=== PATIENT | female | born 1955 | race Caucasian/White ===

== ENCOUNTER → 2020-09-30 11:57 | Outpatient (CLI) | payer OTHER, SELFPAY ==
--- NOTE | 2020-09-30 | DI.US.S_ITS ---
PROCEDURE: US PERIPH VENOUS LOW EXTREM RT INDICATIONS: Pain in right leg TECHNIQUE: Real-time imaging, as well as color and pulse Doppler interrogation, were performed of the lower extremity deep veins from the inguinal ligament to the popliteal fossa. COMPARISON: None. FINDINGS: Deep venous thrombosis can be seen involving the femoral vein distally and the popliteal vein proximally. More proximal deep venous thrombosis is not seen. IMPRESSION: Deep venous thrombosis can be seen involving the femoral vein distally and the proximal popliteal vein. Note: Case discussed by telephone with nurse Menezes at 12:15 p.m. [place] time on September 30, 2020. Dictated by: Primitivo Cerda M.D. on 09/30/2020 at 12:07 Approved by: Primitivo Cerda M.D. on 09/30/2020 at 12:16
== END ==
PROVIDERS: PCP Physician Assistant Medical; Referring Provider Family Medicine; Visit Provider Family Medicine
DX: I82.491 Acute embolism and thrombosis of other specified deep vein of right lower extremity (principal)
CPT/HCPCS: 93971

== ENCOUNTER 2020-09-30 14:07 | Emergency (ER) | payer OTHER, SELFPAY ==
[2020-09-30] VITALS (22 sets, daily range): BP systolic 121–150; BP diastolic 62–83; PULSE 78–113; RESP 12–91; TEMP 36.3; O2SAT 98–100; BMI 23.6
--- NOTE | 2020-09-30 14:32 | DI.RAD.S_ITS ---
PROCEDURE: XR CHEST 2V INDICATIONS: shortness of breath TECHNIQUE: 2 views of the chest were acquired. COMPARISON: [facility], , PERIPH VENOUS LOW EXTREM RT, 09/30/2020, 12:05. FINDINGS: Surgical changes and devices: None. Lungs and pleura: Lungs are clear. No pleural effusions or pneumothorax. The lungs are hyperexpanded, with flattening of the hemidiaphragms seen. Mediastinum: The cardiac contours are within normal limits. The aorta demonstrates calcification and tortuosity. Bones and chest wall: No suspicious bony abnormalities. Age-appropriate bony degenerative changes are seen. Mild levoconvex scoliotic curvature is noted. Soft tissues appear unremarkable. IMPRESSION: Hyperexpanded lungs, without an acute cardiopulmonary process identified. Dictated by: Primitivo Cerda M.D. on 09/30/2020 at 14:20 Approved by: Primitivo Cerda M.D. on 09/30/2020 at 14:21
[2020-09-30 14:41] LABS: Add Manual Diff / Slide Review NO; Basophils Absolute Auto 100 /uL (0-100); Eosinophils Absolute Auto 100 /uL (0-450); Eosinophils Percent Auto 1.4 % (2-4); Hematocrit 25.4 % (36-46); Hemoglobin 7.3 g/dL (12.0-16.0); Lymphocytes Absolute Auto 1300 /uL (1100-4500); Lymphocytes Percent Auto 15.2 % (25-40); Mean Corpuscular HGB Conc 28.7 % (30-36); Mean Corpuscular Hemoglobin 19.6 PG (26-34); Mean Corpuscular Volume 68.1 fL (80-100); Monocytes Absolute Auto 700 /uL (0-900); Monocytes Percent Auto 8.2 % (3-14); Neutrophils Absolute Auto 6100 /uL (1500-7000); Neutrophils Percent Auto 74.2 % (50-75); Platelet Count 426 X10^3/uL (150-400); Red Blood Cell Count 3.73 X10^6/uL (4.0-5.2); White Blood Cell Count 8.3 X10^3/uL (4.5-11.0)
[2020-09-30 14:43] LABS: Alanine Aminotransferase 20 IU/L (<35); Albumin 4.1 g/dL (3.5-5.0); Albumin Globulin Ratio 1.3 (1.0-2.8); Alkaline Phosphatase 102 U/L (38-126); Aspartate Aminotransferase 43 IU/L (14-36); BUN Creatinine Ratio 17.9 (6-22); Bilirubin Total 0.3 mg/dL (0.2-1.3); Blood Urea Nitrogen 14 mg/dL (7-17); Carbon Dioxide 23 mmol/L (22-32); Chloride 107 mmol/L (98-107); Estimated Glomerular Filt Rate > 60.0 mL/min (>60); Globulin 3.2 g/dL (1.7-4.1); Glucose 108 mg/dL (80-110); HEMOLYSIS < 15 (0-50); Potassium 4.1 mmol/L (3.4-5.1); Sodium 136 mmol/L (137-145); Total Protein 7.3 g/dL (6.3-8.2)
[2020-09-30 15:03] LABS: Hypochromasia 1+; Poikilocytosis 1+; Polychromasia 1+
[2020-09-30 15:04] LABS: Microcytosis 3+
--- NOTE | 2020-09-30 16:02 | DI.CT.S_ITS ---
PROCEDURE: CT ANGIO CHEST PE PROTOCOL INDICATIONS: +dvt and sob TECHNIQUE: After the administration of intravenous contrast, 2 mm thick sections acquired from the pulmonary apices to the posterior costophrenic angles. 3-dimensional maximum intensity projection (MIP) coronal and sagittal reformats were then acquired through the thorax. For radiation dose reduction, the following was used: automated exposure control, adjustment of mA and/or kV according to patient size. COMPARISON: [facility], , US PERIPH VENOUS LOW EXTREM RT, 09/30/2020, 12:05. [facility], CR, XR CHEST 2V, 09/30/2020, 14:40. FINDINGS: Image quality: Excellent. Pulmonary arteries: Pulmonary arteries are normal in size. There are multiple intraluminal filling defects involving the left main pulmonary artery, the left upper and lower lobe and right lower lobe lobar arteries, consistent with central pulmonary embolism. Lungs and pleura: There is mild emphysema. A linear density in the right middle lobe is likely atelectasis. No pleural effusions or pneumothorax. Central and peripheral airways are patent. Mediastinum: Heart size is normal, without pericardial effusion. No CT findings to suggest right heart strain. No mediastinal or hilar adenopathy. Thoracic aorta is normal in caliber and enhancement. Esophagus is normal in caliber. Small hiatal hernia. Bones and chest wall: No suspicious bony lesions. Ribs and thoracic spine appear intact. Subtle lucencies noted in superior L1, partially visualized. Thyroid gland is normal . No axillary or supraclavicular adenopathy. Abdomen: Visualized upper abdominal solid organs appear normal in the early arterial phase of enhancement. IMPRESSION: 1. Bilateral pulmonary emboli involving the left main and bilateral lobar pulmonary arteries. No findings to suggest right heart strain. 2. Mild emphysema. 3. Small lucent areas in superior L1, partially visualized and indeterminate in nature. If clinically indicated, MRI may be obtained for further evaluation. Dictated by: Annelise Junior M.D. on 09/30/2020 at 16:35 Approved by: Annelise Junior M.D. on 09/30/2020 at 16:52
--- NOTE | 2020-09-30 16:23 | ED_ITS ---
HPI - Extremity Problem General Chief complaint: Extremity Problem,Nontraumatic Stated complaint: DVT Right leg Time Seen by Provider: 09/30/20 14:57 Source: patient Mode of arrival: Ambulatory Limitations: no limitations History of Present Illness HPI Narrative: Patient is a 64-year-old female who is found to have an outpatient positive DVT study in the right lower extremity. She says that she has had swelling on going for about month. She has also been experiencing some shortness of breath with exertion. She says this is new for her. She denies any chest pain. She has not had any recent travel, or immobilization. She has no underlying clotting disorder. Related Data Allergies Allergy/AdvReac Type Severity Reaction Status Date / Time No Known Drug Allergies Allergy Verified 09/30/20 14:11 Review of Systems Review of Systems Narrative: GENERAL: Denies chills, fatigue, malaise, fever, sweats, travel HEENT: Denies sinus pain, ear pain, sore throat, difficulty swallowing, neck pain RESPIRATORY: See HPI CARDIOVASCULAR: Denies chest pain, palpitations, orthopnea, edema GASTROINTESTINAL: Denies nausea, vomiting, abdominal pain, diarrhea, constipation, melena. : Denies dysuria, frequency, incontinence, hematuria, urinary retention, flank pain. MUSCULOSKELETAL: See HPI SKIN: No rash, no erythema, no pruritus NEUROLOGIC: Denies weakness, dizziness, headache, numbness, change in speech, confusion PSYCHIATRIC: No concerning psychosocial issues. 12 point review of systems is negative except for those stated above and HPI Patient History Medical History (Updated 09/30/20 @ 19:20 by Carol Mccoy DO) Ulcerative colitis Social History Smoking Status: Unknown if ever smoked Smoking Status: Unknown if ever smoked alcohol intake frequency: 0-2 drinks per day Substance Use Type: does not use Exam Initial Vital Signs Initial Vital Signs: Vital Signs Temperature 97.3 F L 09/30/20 14:08 Pulse Rate 85 09/30/20 14:08 Respiratory Rate 15 09/30/20 14:08 Blood Pressure 124/78 09/30/20 14:08 Pulse Oximetry 100 09/30/20 14:08 GENERAL: Well-appearing, well-nourished and in no acute distress. HEENT: Head atraumatic,EOMI, pupils reactive, face symmetric, moist mucous membranes CARDIOVASCULAR: Regular rate and rhythm without murmurs, rubs or gallops. RESPIRATORY: Breath sounds equal bilaterally, no wheezes rales or rhonchi. ABDOMEN: Soft, nontender. Normoactive bowel sounds all 4 quadrants. No guarding or rebound. EXTREMITIES: Normal range of motion, no clubbing or edema. Neurovascularly intact. Mild pain and swelling of her right lower extremity with pain on her calf. NEUROLOGICAL: Alert and oriented x4.Normal gait and speech. SKIN: Warm, dry, no laceration, no petechiae, no rashes or lesions. Course Orders Ordered: ED Orders 09/30/20 14:20 Complete Blood Count AUTO DIFF Stat Comprehensive Metabolic Panel Stat Lactate (Lactic Acid) Stat Partial Thromboplastin Time Stat Troponin & CK Cardiac Panel Stat 09/30/20 14:32 XR chest 2V Stat EKG-12 Lead Stat Measure peak expiratory flow ONCE RT Consult Eval and Treat Now 09/30/20 16:02 CT angio chest PE protocol Stat 09/30/20 18:15 PTT [Partial Thromboplastin Time] Q6H 09/30/20 18:31 COVID19 Stat 10/01/20 00:15 PTT [Partial Thromboplastin Time] Q6H 10/01/20 05:00 Hemoglobin and Hematocrit DAILY 10/01/20 06:15 PTT [Partial Thromboplastin Time] Q6H 10/01/20 12:15 PTT [Partial Thromboplastin Time] Q6H Heparin Sodium/Dextrose (Heparin Drip) 25,000 unit in 500 mls @ 20 mls/hr IV CONT MICHELLE; Protocol Last Admin: 09/30/20 18:22 Dose: Not Given Documented by: BARB Heparin Sodium/Dextrose (Heparin Drip) 25,000 unit in 500 mls @ 24 mls/hr IV CONT MICHELLE; Protocol Last Admin: 09/30/20 18:22 Dose: 1,200 units/hr, 24 mls/hr Documented by: BARB Discontinued Medications Heparin Sodium (Porcine) (Heparin 5,000 Unit/Ml Vial) 5,000 unit IV NOW ONE Stop: 09/30/20 17:51 Heparin Sodium (Porcine) (Heparin 5,000 Unit/Ml Vial) 5,000 unit 80 unit/kg (5000 unit) IV NOW ONE Stop: 09/30/20 18:07 Last Admin: 09/30/20 18:22 Dose: 5,000 unit Documented by: CSIEDLE Vital Signs Vital signs: Vital Signs - 8 hr 09/30/20 14:08 09/30/20 14:25 09/30/20 14:26 Temperature 97.3 F L Pulse Rate 85 80 81 Respiratory Rate 15 19 14 Blood Pressure 124/78 132/75 Pulse Oximetry 100 100 100 09/30/20 14:30 09/30/20 14:58 09/30/20 15:00 Temperature Pulse Rate 78 83 78 Respiratory Rate 14 12 Blood Pressure 123/75 147/79 H Pulse Oximetry 100 100 100 09/30/20 15:01 09/30/20 15:30 09/30/20 16:00 Temperature Pulse Rate 80 79 99 H Respiratory Rate 14 29 H 43 H Blood Pressure 128/75 129/83 124/65 Pulse Oximetry 99 100 100 MDM - Extremity (Nontraumatic) Lab Data Result diagrams: 09/30/20 14:20 09/30/20 14:20 Labs: Lab Results 09/30/20 09/30/20 09/30/20 Range/Units 14:20 14:20 14:20 WBC 8.3 (4.5-11.0) X10^3/uL RBC 3.73 L (4.0-5.2) X10^6/uL Hgb 7.3 L (12.0-16.0) g/dL Hct 25.4 L (36-46) % MCV 68.1 L (80-100) fL MCH 19.6 L (26-34) PG MCHC 28.7 L (30-36) % RDW 20.0 H (11.6-14.8) % Plt Count 426 H (150-400) X10^3/uL Neut % (Auto) 74.2 (50-75) % Lymph % (Auto) 15.2 L (25-40) % [place] % (Auto) 8.2 (3-14) % Eos % (Auto) 1.4 L (2-4) % Baso % (Auto) 1.0 (0-2) % Neut # (Auto) 6100 (3990-6361) /uL Lymph # (Auto) 1300 (2813-9933) /uL [place] # (Auto) 700 (0-900) /uL Eos # (Auto) 100 (0-450) /uL Baso # (Auto) 100 (0-100) /uL RBC Morphology Not Reportable Polychromasia 1+ H Hypochromasia 1+ H Poikilocytosis 1+ H Microcytosis 3+ H APTT (26.4-36.2) SECONDS Sodium 136 L (137-145) mmol/L Potassium 4.1 (3.4-5.1) mmol/L Chloride 107 (98-107) mmol/L Carbon Dioxide 23 (22-32) mmol/L BUN 14 (7-17) mg/dL Creatinine 0.78 (0.52-1.04) mg/dL Estimated GFR > 60.0 (>60) mL/min BUN/Creatinine Ratio 17.9 (6-22) Glucose 108 (80-110) mg/dL Lactate 1.0 (0.7-2.1) mmol/L Calcium 9.0 (8.4-10.2) mg/dL Total Bilirubin 0.3 (0.2-1.3) mg/dL AST 43 H (14-36) IU/L ALT 20 (<35) IU/L Alkaline Phosphatase 102 (38-126) U/L Total Creatine Kinase (30-135) U/L CK-MB (CK-2) CK-MB (CK-2) Rel Index Troponin I (0.01-0.034) ng/mL Total Protein 7.3 (6.3-8.2) g/dL Albumin 4.1 (3.5-5.0) g/dL Globulin 3.2 (1.7-4.1) g/dL Albumin/Globulin Ratio 1.3 (1.0-2.8) COVID-19 PCR (Negative) 09/30/20 09/30/20 09/30/20 Range/Units 14:20 14:20 18:31 WBC (4.5-11.0) X10^3/uL RBC (4.0-5.2) X10^6/uL Hgb (12.0-16.0) g/dL Hct (36-46) % MCV (80-100) fL MCH (26-34) PG MCHC (30-36) % RDW (11.6-14.8) % Plt Count (150-400) X10^3/uL Neut % (Auto) (50-75) % Lymph % (Auto) (25-40) % [place] % (Auto) (3-14) % Eos % (Auto) (2-4) % Baso % (Auto) (0-2) % Neut # (Auto) (2537-4136) /uL Lymph # (Auto) (2755-9516) /uL [place] # (Auto) (0-900) /uL Eos # (Auto) (0-450) /uL Baso # (Auto) (0-100) /uL RBC Morphology Polychromasia Hypochromasia Poikilocytosis Microcytosis APTT 29 (26.4-36.2) SECONDS Sodium (137-145) mmol/L Potassium (3.4-5.1) mmol/L Chloride (98-107) mmol/L Carbon Dioxide (22-32) mmol/L BUN (7-17) mg/dL Creatinine (0.52-1.04) mg/dL Estimated GFR (>60) mL/min BUN/Creatinine Ratio (6-22) Glucose (80-110) mg/dL Lactate (0.7-2.1) mmol/L Calcium (8.4-10.2) mg/dL Total Bilirubin (0.2-1.3) mg/dL AST (14-36) IU/L ALT (<35) IU/L Alkaline Phosphatase (38-126) U/L Total Creatine Kinase 41 (30-135) U/L CK-MB (CK-2) TNP CK-MB (CK-2) Rel Index TNP Troponin I < 0.012 (0.01-0.034) ng/mL Total Protein (6.3-8.2) g/dL Albumin (3.5-5.0) g/dL Globulin (1.7-4.1) g/dL Albumin/Globulin Ratio (1.0-2.8) COVID-19 PCR Negative (Negative) Imaging Data US - DVT: Radiologist's Impression: PROCEDURE: US PERIPH VENOUS LOW EXTREM RT INDICATIONS: Pain in right leg TECHNIQUE: Real-time imaging, as well as color and pulse Doppler interrogation, were performed of the lower extremity deep veins from the inguinal ligament to the popliteal fossa. COMPARISON: None. FINDINGS: Deep venous thrombosis can be seen involving the femoral vein distally and the popliteal vein proximally. More proximal deep venous thrombosis is not seen. IMPRESSION: Deep venous thrombosis can be seen involving the femoral vein distally and the proximal popliteal vein. Note: Case discussed by telephone with nurse Menezes at 12:15 p.m. [place] time on September 30, 2020. Dictated by: Primitivo Cerda M.D. on 09/30/2020 at 12:07 Approved by: Primitivo Cerda M.D. on 09/30/2020 at 12:16 Chest x-ray: Radiologist's Impression: PROCEDURE: XR CHEST 2V INDICATIONS: shortness of breath TECHNIQUE: 2 views of the chest were acquired. COMPARISON: [facility], PERIP VENOUS LOW EXTREM RT, 09/30/2020, 12:05. FINDINGS: Surgical changes and devices: None. Lungs and pleura: Lungs are clear. No pleural effusions or pneumothorax. The lungs are hyperexpanded, with flattening of the hemidiaphragms seen. Mediastinum: The cardiac contours are within normal limits. The aorta demonstrates calcification and tortuosity. Bones and chest wall: No suspicious bony abnormalities. Age-appropriate bony degenerative changes are seen. Mild levoconvex scoliotic curvature is noted. Soft tissues appear unremarkable. IMPRESSION: Hyperexpanded lungs, without an acute cardiopulmonary process identified. Dictated by: Primitivo Cerda M.D. on 09/30/2020 at 14:20 CT scan - chest: Radiologist's Impression: PROCEDURE: CT ANGIO CHEST PE PROTOCOL INDICATIONS: +dvt and sob TECHNIQUE: After the administration of intravenous contrast, 2 mm thick sections acquired from the pulmonary apices to the posterior costophrenic angles. 3-dimensional maximum intensity projection (MIP) coronal and sagittal reformats were then acquired through the thorax. For radiation dose reduction, the following was used: automated exposure c ontrol, adjustment of mA and/or kV according to patient size. COMPARISON: [facility], PERIP VENOUS LOW EXTREM RT, 09/30/2020, 12:05. [facility], XR CHEST 2V, 09/30/2020, 14:40. FINDINGS: Image quality: Excellent. Pulmonary arteries: Pulmonary arteries are normal in size. There are multiple intraluminal filling defects involving the left main pulmonary artery, the left upper and lower lobe and right lower lobe lobar arteries, consistent with central pulmonary embolism. Lungs and pleura: There is mild emphysema. A linear density in the right middle lobe is likely atelectasis. No pleural effusions or pneumothorax. Central and peripheral airways are patent. Mediastinum: Heart size is normal, without pericardial effusion. No CT findings to suggest right heart strain. No mediastinal or hilar adenopathy. Thoracic aorta is normal in caliber and enhancement. Esophagus is normal in caliber. Small hiatal hernia. Bones and chest wall: No suspicious bony lesions. Ribs and thoracic spine appear intact. Subtle lucencies noted in superior L1, partially visualized. Thyroid gland is normal . No axillary or supraclavicular adenopathy. Abdomen: Visualized upper abdominal solid organs appear normal in the early arterial phase of enhancement. IMPRESSION: 1. Bilateral pulmonary emboli involving the left main and bilateral lobar pu lmonary arteries. No findings to suggest right heart strain. 2. Mild emphysema. 3. Small lucent areas in superior L1, partially visualized and indeterminate in nature. If clinically indicated, MRI may be obtained for further evaluation. Dictated by: Annelise Junior M.D. on 09/30/2020 at 16:35 ECG Data Attestation EKG: I personally reviewed and interpreted this ECG as follows: Prior ECG tracings: not available for review Interpretation: Normal sinus rhythm rate 76 p.r. interval 144 QRS [address] changes, T-wave inversion noted in lead [address] or Q-wave identified. MDM Narrative Medical decision making narrative: The patient is found to be quite anemic. However she is hemodynamically stable with normal blood pressure not requiring oxygen. She denies any history of anemia she has no known blood loss she denies any blood in her stool or hemoptysis. She does state she had at [facility]: Surgery for for ulcerative colitis. Initially talked with hospitalist Dr. Graham recommended she be transferred for [facility]. She spoke with Dr. Hale and Interventional Cardiology who agreed teddy tavares may be a candidate. Recommended patient be transferred to [facility] and admitted to the hospitalist [id number]-Dr. Flowers hospitalist at [facility] accepts patient for trans [place]. She is started on heparin were her or in per Dr Graham Patient overall remains well and stable eating dinner. There is no signs of right heart strain some hypoxia or hypotension. Discharge Plan Departure Patient Disposition: [facility] Clinical Impression: Pulmonary embolism Qualifiers: Pulmonary embolism type: unspecified Chronicity: acute Acute cor pulmonale presence: without acute cor pulmonale Qualified Code(s): I26.99 - Other pulmonary embolism without acute cor pulmonale Referrals: Devi Burrell PA-C [Primary Care Provider] -
[2020-09-30 17:30] LABS: Creatine Kinase 41 U/L (30-135)
[2020-09-30 17:43] LABS: Troponin I < 0.012 ng/mL (0.01-0.034)
[2020-09-30 18:18] LABS: PTT Partial Thromboplastin Tim 29 SECONDS (26.4-36.2)
[2020-09-30] MEDS: HEPARIN DRIP 25,000 UNIT/500 ML IV.SOLN 24 UNIT IV (18:22)
[2020-09-30] MEDS: HEPARIN 5,000 UNIT/ML VIAL 5000 UNIT IV (18:22)
[2020-09-30 18:53] LABS: COVID19 -Nasal RAPID Negative (Negative)
[2020-09-30 21:19] LABS: Hematocrit 21.5 % (36-46)
[2020-09-30 21:25] LABS: Hemoglobin 6.3 g/dL (12.0-16.0)
[2020-09-30 21:58] LABS: PTT Partial Thromboplastin Tim 156 SECONDS (26.4-36.2)
== END 2020-09-30 22:05 | disposition short-term general hospital (02) ==
PROVIDERS: Emergency Provider Emergency Medicine; PCP Physician Assistant Medical
DX: I26.99 Other pulmonary embolism without acute cor pulmonale (principal); R06.02 Shortness of breath; I82.431 Acute embolism and thrombosis of right popliteal vein; I82.491 Acute embolism and thrombosis of other specified deep vein of right lower extremity; M79.604 Pain in right leg
CPT/HCPCS: 36415; 71046; 71275; 80053; 82550; 83605; 84484; 85014; 85018; 85025; 85730; 87635; 93005; 93971; 96365; 96366; 96375; 99284; J1644; Q9967

== ENCOUNTER → 2020-10-19 11:54 | Outpatient (CLI) | payer OTHER, SELFPAY ==
[2020-10-19 12:56] LABS: Hematocrit 22.5 % (36-46); Mean Corpuscular HGB Conc 30.1 % (30-36); Mean Corpuscular Hemoglobin 21.3 PG (26-34); Mean Corpuscular Volume 70.7 fL (80-100); Platelet Count 336 X10^3/uL (150-400); Red Blood Cell Count 3.18 X10^6/uL (4.0-5.2); Red Cell Distribution Width 22.9 % (11.6-14.8); White Blood Cell Count 6.9 X10^3/uL (4.5-11.0)
[2020-10-19 12:59] LABS: Hemoglobin 6.8 g/dL (12.0-16.0)
[2020-10-19 13:05] LABS: Anisocytosis 3+; Neutrophils Absolute Manual 5727 /uL (3000-5900); Total Cells Counted 100
[2020-10-19 13:25] LABS: Alanine Aminotransferase 15 IU/L (<35); Albumin 3.5 g/dL (3.5-5.0); Albumin Globulin Ratio 1.3 (1.0-2.8); Alkaline Phosphatase 70 U/L (38-126); Aspartate Aminotransferase 32 IU/L (14-36); BUN Creatinine Ratio 17.9 (6-22); Bilirubin Total 0.3 mg/dL (0.2-1.3); Blood Urea Nitrogen 15 mg/dL (7-17); Calcium 8.8 mg/dL (8.4-10.2); Carbon Dioxide 25 mmol/L (22-32); Chloride 109 mmol/L (98-107); Estimated Glomerular Filt Rate > 60.0 mL/min (>60); Globulin 2.7 g/dL (1.7-4.1); Glucose 92 mg/dL (80-110); HEMOLYSIS < 15 (0-50); Potassium 4.2 mmol/L (3.4-5.1); Sodium 138 mmol/L (137-145); Total Protein 6.2 g/dL (6.3-8.2)
[2020-10-19 13:37] LABS: HEMOLYSIS < 15 (0-50); Iron 15 ug/dL (37-170)
[2020-10-19 13:47] LABS: Percent Iron Saturation 3 % (15-50); Total Iron Binding Capacity 456 ug/dL (265-497); Transferrin 369 mg/dL (206-381)
[2020-10-19 14:02] LABS: Ferritin 6 ng/mL (11-264)
[2020-10-19 14:31] LABS: Folate > 20.0 ng/mL (2.76-20.0); Vitamin B12 318 pg/mL (239-931)
== END ==
PROVIDERS: PCP Registered Nurse Diabetes Educator; Referring Provider Registered Nurse Diabetes Educator; Visit Provider Registered Nurse Diabetes Educator
DX: D64.9 Anemia, unspecified (principal); K51.90 Ulcerative colitis, unspecified, without complications
CPT/HCPCS: 36415; 80053; 82607; 82728; 82746; 83540; 83550; 85025

== ENCOUNTER 2020-10-19 13:35 | Emergency (ER) | payer OTHER, SELFPAY ==
[2020-10-19] VITALS (19 sets, daily range): BP systolic 110–147; BP diastolic 57–91; PULSE 84–102; RESP 15–17; TEMP 36.6–37.2; O2SAT 97–100; BMI 23.1
--- NOTE | 2020-10-19 13:58 | ED.GENADULT ---
HPI - General Adult <Samy Menjivar DO - Last Filed: 10/20/20 07:11> General Chief complaint: Recheck/Abnormal Lab/Rx Stated complaint: Low Red Blood Count, SOB, Dizzy, Blood Transfusion Time Seen by Provider: 10/19/20 13:40 Source: patient Mode of arrival: Ambulatory Limitations: no limitations History of Present Illness HPI narrative: Patient is a 64-year-old female who 2 weeks ago was seen here in this department in transfer to another facility after having a right lower extremity DVT and bilateral pulmonary embolisms. She was started on apixaban. Was discharged home after that hospital stay. Went to primary doctor today as a follow-up secondary to this and had complaints of shortness of breath. Blood was drawn as an outpatient which showed anemia. Patient was sent to the emergency department for evaluation. During her stay in the hospital 2 weeks ago she was transfused blood given anemia at that time. States that prior to then she had no prior blood transfusions. She states that many years ago when she was a teenager she had anemia secondary to vaginal bleeding. She has had a hysterectomy. Has also had a total colectomy secondary to long-standing history of ulcer colitis. This was done many years ago. She denies any blood in her stool. She states that at baseline she has very loose stools given her prior GI issues. Denies any vomiting blood. No blood in urine. No bruising. She states she does get short of breath on exertion but this is not necessarily new today but has been going on since her last visit where she was diagnosed with pulmonary embolism. She is not having any chest pain. Related Data Home Medications Medication Instructions Recorded Confirmed apixaban PO 10/19/20 10/19/20 biotin 5,000 mcg disintegrating 5,000 mcg PO DAILY tab 10/19/20 10/19/20 tablet cholecalciferol (vitamin D3) 50 50 mcg PO DAILY 10/19/20 10/19/20 mcg (2,000 unit) capsule citalopram 40 mg tablet 40 mg PO DAILY tab 10/19/20 10/19/20 clobetasol 0.05 % topical ointment 1 applic TOPICAL DAILY PRN 10/19/20 10/19/20 echinacea PO 10/19/20 estradiol 1.25 gram/actuation 1 pump TRANSDERMAL DAILY 10/19/20 10/19/20 (0.06%) transdermal gel pump fluticasone propionate 50 1 spray INTRANASAL DAILY 10/19/20 10/19/20 mcg/actuation nasal spray,suspension lidocaine 5 % topical cream 1 applic TOPICAL BID PRN 10/19/20 10/19/20 loperamide [Imodium A-D] 2 mg PO Q4H PRN 10/19/20 10/19/20 multivitamin with iron 1 cap PO DAILY 10/19/20 10/19/20 omeprazole 20 mg capsule,delayed 20 mg PO DAILY 10/19/20 10/19/20 release Previous Rx's Medication Instructions Recorded apixaban 5 mg tablet 5 mg PO BID #60 tab 10/19/20 Allergies Allergy/AdvReac Type Severity Reaction Status Date / Time latex Allergy Severe yeast Verified 10/19/20 14:04 infection on skin hydromorphone [From Dilaudid] AdvReac Severe major Verified 10/19/20 14:04 hallucinations Review of Systems <Samy Menjivar DO - Last Filed: 10/20/20 07:11> Constitutional Constitutional: Denies fatigue, Denies fever(s) and Denies weakness ENT Ears, Nose, Mouth, and Throat: Denies disequilibrium Cardiovascular Cardiovascular: Denies chest pain and Reports dyspnea on exertion Respiratory Respiratory: Reports dyspnea on exertion Gastrointestinal Gastrointestinal: Denies abdominal pain, Denies change in bowel habits, Denies nausea and Denies vomiting Musculoskeletal Musculoskeletal: Denies myalgias Integumentary/Breasts Skin/Breast: Denies lesions and Denies rash Neurologic Neurologic: Denies disequilibrium and Denies weakness Endocrine Endocrine: Denies fatigue Hematologic/Lymphatic Comments: On anticoagulation Allergic/Immunologic Allergic/Immunologic: Denies urticaria Patient History <DO Dillon Sanchez Last Filed: 10/20/20 07:11> Medical History Anemia Bilateral pulmonary embolism DVT (deep venous thrombosis) Ulcerative colitis Surgical History (Updated 10/19/20 @ 13:35 by ALICIA Leach) History of colectomy Social History Smoking Status: Never smoker Smoking Status: Never smoker alcohol intake frequency: 0-2 drinks per day Substance Use Type: does not use Exam <DO Dillon Sanchez Last Filed: 10/20/20 07:11> Initial Vital Signs Initial Vital Signs: Vital Signs Temperature 97.9 F 10/19/20 13:45 Pulse Rate 102 H 10/19/20 13:45 Respiratory Rate 17 10/19/20 13:45 Blood Pressure 136/79 10/19/20 13:45 Pulse Oximetry 100 10/19/20 13:45 Const General: cooperative and comfortable Limitations: mental status not altered HENMT Head: normal to inspection and normocephalic Resp Effort & Inspection: normal respiratory effort Auscultation: clear to auscultation bilaterally Cardio Rate: tachycardic Rhythm: regular rhythm GI Inspection: non-distended Palpation: soft Skin Lesions: no lesions Rashes: no rashes Neuro General: patient alert and patient awake Cognition: normal cognition Speech: speech normal Extrem General: normal to inspection and capillary refill normal Psych Appearance: grossly normal and well kempt <Rashid Ochoa, DO - Last Filed: 10/19/20 22:24> Initial Vital Signs Initial Vital Signs: Vital Signs Temperature 97.9 F 10/19/20 13:45 Pulse Rate 102 H 10/19/20 13:45 Respiratory Rate 17 10/19/20 13:45 Blood Pressure 136/79 10/19/20 13:45 Pulse Oximetry 100 10/19/20 13:45 Course <Samy Menjivar DO - Last Filed: 10/20/20 07:11> Orders Ordered: Discontinued Medications Diphenhydramine HCl (Diphenhydramine 50 Mg/Ml Vial) 25 mg IV NOW ONE Stop: 10/19/20 14:19 Last Admin: 10/19/20 14:28 Dose: 25 mg Documented by: MAGUI Diphenhydramine HCl (Diphenhydramine 50 Mg/Ml Vial) 25 mg IV NOW ONE Stop: 10/19/20 15:54 Last Admin: 10/19/20 15:59 Dose: 25 mg Documented by: DESMOND Diphenhydramine HCl (Diphenhydramine 50 Mg/Ml Vial) 25 mg IV NOW ONE Stop: 10/19/20 17:50 Last Admin: 10/19/20 17:53 Dose: 25 mg Documented by: DESMOND Lorazepam (Lorazepam 2 Mg/Ml Inj) 1 mg IV NOW ONE Stop: 10/19/20 16:40 Methylprednisolone (Methylprednisolone 125 Mg/2 Ml Vial) 125 mg IV NOW ONE Stop: 10/19/20 15:54 Last Admin: 10/19/20 16:00 Dose: 125 mg Documented by: DESMOND Vital Signs Vital signs: Vital Signs - 8 hr 10/19/20 14:30 10/19/20 15:00 10/19/20 15:02 Temperature Pulse Rate 99 H 98 H 102 H Respiratory Rate Blood Pressure 112/57 L Pulse Oximetry 100 100 100 10/19/20 15:30 10/19/20 15:34 10/19/20 16:00 Temperature 99.0 F 98.2 F Pulse Rate 91 H 87 88 Respiratory Rate 17 16 Blood Pressure 126/71 126/71 110/60 Pulse Oximetry 100 100 10/19/20 16:30 10/19/20 17:00 10/19/20 17:30 Temperature Pulse Rate 91 H 94 H 84 Respiratory Rate Blood Pressure 117/68 125/64 147/80 H Pulse Oximetry 100 100 99 10/19/20 17:44 10/19/20 17:48 10/19/20 18:00 Temperature 98.7 F Pulse Rate 86 86 94 H Respiratory Rate 15 Blood Pressure 132/74 132/74 Pulse Oximetry 100 99 10/19/20 18:03 10/19/20 18:06 10/19/20 18:30 Temperature 98.5 F Pulse Rate 92 H 88 93 H Respiratory Rate 15 Blood Pressure 141/76 H 141/76 H Pulse Oximetry 99 97 10/19/20 19:57 10/19/20 20:45 Temperature 98.3 F 98.3 F Pulse Rate 85 84 Respiratory Rate 15 Blood Pressure 141/91 H 141/84 H Pulse Oximetry 98 98 <Rashid Ochoa, - Last Filed: 10/19/20 22:24> Course Course Narrative: patient received in signout to follow up on repeat H/H after completion of PRBCs. Patient feeling better and had improvement in H/H. She was discharged before I was able to examine her. Orders Ordered: Discontinued Medications Diphenhydramine HCl (Diphenhydramine 50 Mg/Ml Vial) 25 mg IV NOW ONE Stop: 10/19/20 14:19 Last Admin: 10/19/20 14:28 Dose: 25 mg Documented by: MAGUI Diphenhydramine HCl (Diphenhydramine 50 Mg/Ml Vial) 25 mg IV NOW ONE Stop: 10/19/20 15:54 Last Admin: 10/19/20 15:59 Dose: 25 mg Documented by: CVANCE Diphenhydramine HCl (Diphenhydramine 50 Mg/Ml Vial) 25 mg IV NOW ONE Stop: 10/19/20 17:50 Last Admin: 10/19/20 17:53 Dose: 25 mg Documented by: CVANCE Lorazepam (Lorazepam 2 Mg/Ml Inj) 1 mg IV NOW ONE Stop: 10/19/20 16:40 Methylprednisolone (Methylprednisolone 125 Mg/2 Ml Vial) 125 mg IV NOW ONE Stop: 10/19/20 15:54 Last Admin: 10/19/20 16:00 Dose: 125 mg Documented by: CAITIEANCE Vital Signs Vital signs: Vital Signs - 8 hr 10/19/20 14:30 10/19/20 15:00 10/19/20 15:02 Temperature Pulse Rate 99 H 98 H 102 H Respiratory Rate Blood Pressure 112/57 L Pulse Oximetry 100 100 100 10/19/20 15:30 10/19/20 15:34 10/19/20 16:00 Temperature 99.0 F 98.2 F Pulse Rate 91 H 87 88 Respiratory Rate 17 16 Blood Pressure 126/71 126/71 110/60 Pulse Oximetry 100 100 10/19/20 16:30 10/19/20 17:00 10/19/20 17:30 Temperature Pulse Rate 91 H 94 H 84 Respiratory Rate Blood Pressure 117/68 125/64 147/80 H Pulse Oximetry 100 100 99 10/19/20 17:44 10/19/20 17:48 10/19/20 18:00 Temperature 98.7 F Pulse Rate 86 86 94 H Respiratory Rate 15 Blood Pressure 132/74 132/74 Pulse Oximetry 100 99 10/19/20 18:03 10/19/20 18:06 10/19/20 18:30 Temperature 98.5 F Pulse Rate 92 H 88 93 H Respiratory Rate 15 Blood Pressure 141/76 H 141/76 H Pulse Oximetry 99 97 10/19/20 19:57 10/19/20 20:45 Temperature 98.3 F 98.3 F Pulse Rate 85 84 Respiratory Rate 15 Blood Pressure 141/91 H 141/84 H Pulse Oximetry 98 98 Medical Decision Making <Samy Menjivar DO - Last Filed: 10/20/20 07:11> Medical Records Medical records reviewed: Yes I reviewed the patient's medical records. Lab Data Lab results reviewed: Yes I reviewed the patient's lab results. Result diagrams: 10/19/20 20:10 Labs: Lab Results 10/19/20 10/19/20 10/19/20 Range/Units 14:10 14:10 14:10 WBC 7.5 (4.5-11.0) X10^3/uL RBC 3.15 L (4.0-5.2) X10^6/uL Hgb 6.8 L* (12.0-16.0) g/dL Hct 22.5 L (36-46) % MCV 71.4 L (80-100) fL MCH 21.6 L (26-34) PG MCHC 30.2 (30-36) % RDW 23.0 H (11.6-14.8) % Plt Count 330 (150-400) X10^3/uL Neut % (Auto) 71.0 (50-75) % Lymph % (Auto) 18.0 L (25-40) % [place] % (Auto) 8.7 (3-14) % Eos % (Auto) 1.6 L (2-4) % Baso % (Auto) 0.7 (0-2) % Neut # (Auto) 5300 (0362-7979) /uL Lymph # (Auto) 1300 (9680-7411) /uL [place] # (Auto) 600 (0-900) /uL Eos # (Auto) 100 (0-450) /uL Baso # (Auto) 100 (0-100) /uL RBC Morphology See below Hypochromasia 2+ H Microcytosis 2+ H PT 15.7 H (10.1-12.7) SECONDS INR 1.4 H (0.9-1.3) APTT 31 D (26.4-36.2) SECONDS Blood Type A Positive Antibody Screen Negative Crossmatch See Detail 10/19/20 Range/Units 20:10 WBC 7.9 (4.5-11.0) X10^3/uL RBC 4.05 (4.0-5.2) X10^6/uL Hgb 9.5 L (12.0-16.0) g/dL Hct 29.9 L (36-46) % MCV 73.8 L (80-100) fL MCH 23.6 L (26-34) PG MCHC 31.9 (30-36) % RDW 21.7 H (11.6-14.8) % Plt Count 287 (150-400) X10^3/uL Neut % (Auto) (50-75) % Lymph % (Auto) (25-40) % [place] % (Auto) (3-14) % Eos % (Auto) (2-4) % Baso % (Auto) (0-2) % Neut # (Auto) (9456-6326) /uL Lymph # (Auto) (4033-0989) /uL [place] # (Auto) (0-900) /uL Eos # (Auto) (0-450) /uL Baso # (Auto) (0-100) /uL RBC Morphology Hypochromasia Microcytosis PT (10.1-12.7) SECONDS INR (0.9-1.3) APTT (26.4-36.2) SECONDS Blood Type Antibody Screen Crossmatch MDM Narrative Medical decision making narrative: Patient is anemic. She is not in respiratory distress sitting in the bed. Is not hypotensive. Unsure the exact etiology of her blood loss although she describes no blood in the urine, no rectal bleeding, no vomiting. No headaches. No abdominal pain. Patient states she has had reactions in the past to blood transfusions in asked for Benadryl. Will transfuse 2 units of packed red blood cells. Care turned over to Dr. Ochoa to follow-up after 2nd unit blood cells administered. <Rashid Ochoa, DO - Last Filed: 10/19/20 22:24> Lab Data Labs: Lab Results 10/19/20 10/19/20 10/19/20 Range/Units 14:10 14:10 14:10 WBC 7.5 (4.5-11.0) X10^3/uL RBC 3.15 L (4.0-5.2) X10^6/uL Hgb 6.8 L* (12.0-16.0) g/dL Hct 22.5 L (36-46) % MCV 71.4 L (80-100) fL MCH 21.6 L (26-34) PG MCHC 30.2 (30-36) % RDW 23.0 H (11.6-14.8) % Plt Count 330 (150-400) X10^3/uL Neut % (Auto) 71.0 (50-75) % Lymph % (Auto) 18.0 L (25-40) % [place] % (Auto) 8.7 (3-14) % Eos % (Auto) 1.6 L (2-4) % Baso % (Auto) 0.7 (0-2) % Neut # (Auto) 5300 (7370-4837) /uL Lymph # (Auto) 1300 (0088-0939) /uL [place] # (Auto) 600 (0-900) /uL Eos # (Auto) 100 (0-450) /uL Baso # (Auto) 100 (0-100) /uL RBC Morphology See below Hypochromasia 2+ H Microcytosis 2+ H PT 15.7 H (10.1-12.7) SECONDS INR 1.4 H (0.9-1.3) APTT 31 D (26.4-36.2) SECONDS Blood Type A Positive Antibody Screen Negative Crossmatch See Detail 10/19/20 Range/Units 20:10 WBC 7.9 (4.5-11.0) X10^3/uL RBC 4.05 (4.0-5.2) X10^6/uL Hgb 9.5 L (12.0-16.0) g/dL Hct 29.9 L (36-46) % MCV 73.8 L (80-100) fL MCH 23.6 L (26-34) PG MCHC 31.9 (30-36) % RDW 21.7 H (11.6-14.8) % Plt Count 287 (150-400) X10^3/uL Neut % (Auto) (50-75) % Lymph % (Auto) (25-40) % [place] % (Auto) (3-14) % Eos % (Auto) (2-4) % Baso % (Auto) (0-2) % Neut # (Auto) (6359-7620) /uL Lymph # (Auto) (7563-3444) /uL [place] # (Auto) (0-900) /uL Eos # (Auto) (0-450) /uL Baso # (Auto) (0-100) /uL RBC Morphology Hypochromasia Microcytosis PT (10.1-12.7) SECONDS INR (0.9-1.3) APTT (26.4-36.2) SECONDS Blood Type Antibody Screen Crossmatch Discharge Plan Departure Patient Disposition: Home Clinical Impression: Anemia Qualifiers: Anemia type: iron deficiency Iron deficiency anemia type: unspecified iron deficiency Qualified Code(s): D50.9 - Iron deficiency anemia, unspecified Instructions: Anemia Activity Restrictions/Additional Instructions: *You have been diagnosed with [symptomatic anemia, likely at least in part due to low iron] *What to do: * continue to take medications as directed *Follow up with your primary care provider in 2-3 days, call for an appointment. Let them know you were seen in the Emergency Department and that we ask that you be seen in follow up *Return to ER if you should have any new, worsening or concerning symptoms Prescriptions: No Action apixaban PO RF: 0 citalopram 40 mg tablet 40 mg PO DAILY RF: 0 multivitamin with iron 1 cap PO DAILY RF: 0 biotin 5,000 mcg tablet,disintegrating 5,000 mcg PO DAILY RF: 0 echinacea 760 mg PO RF: 0 cholecalciferol (vitamin D3) 50 mcg (2,000 unit) capsule 50 mcg PO DAILY RF: 0 omeprazole 20 mg capsule,delayed release(DR/EC) 20 mg PO DAILY RF: 0 fluticasone propionate 50 mcg/actuation spray,suspension 1 spray intranasal DAILY RF: 0 clobetasol 0.05 % ointment 1 applic topical DAILY PRNRF: 0 lidocaine 5 % cream 1 applic topical BID PRNRF: 0 EstroGel 1.25 gram/actuation gel in metered-dose pump 1 pump transdermal DAILY RF: 0 Eliquis 5 mg tablet 5 mg PO BID Qty: 60 RF: 2 loperamide [Imodium A-D] 2 mg Capsule 2 mg PO Q4H PRN (Reason: Diarrhea) RF: 0 Referrals: Yung Lozoya ARNP [Primary Care Provider] -
[2020-10-19] MEDS: diphenhydrAMINE 50 MG/ML VIAL 25 MG IV ×3 (14:28→17:53)
[2020-10-19 14:31] LABS: Basophils Absolute Auto 100 /uL (0-100); Basophils Percent Auto 0.7 % (0-2); Eosinophils Absolute Auto 100 /uL (0-450); INR 1.4 (0.9-1.3); Lymphocytes Absolute Auto 1300 /uL (1100-4500); Neutrophils Absolute Auto 5300 /uL (1500-7000); Prothrombin Time 15.7 SECONDS (10.1-12.7); White Blood Cell Count 7.5 X10^3/uL (4.5-11.0)
[2020-10-19 14:34] LABS: Add Manual Diff / Slide Review NO; Eosinophils Percent Auto 1.6 % (2-4); Mean Corpuscular HGB Conc 30.2 % (30-36); Mean Corpuscular Hemoglobin 21.6 PG (26-34); Mean Corpuscular Volume 71.4 fL (80-100); Monocytes Absolute Auto 600 /uL (0-900); Monocytes Percent Auto 8.7 % (3-14); PTT Partial Thromboplastin Tim 31 SECONDS (26.4-36.2); Platelet Count 330 X10^3/uL (150-400); Red Blood Cell Count 3.15 X10^6/uL (4.0-5.2)
[2020-10-19 14:41] LABS: Hematocrit 22.5 % (36-46)
[2020-10-19 15:24] LABS: Hypochromasia 2+; Microcytosis 2+
[2020-10-19] MEDS: methylPREDNISolone 125 MG/2 ML VIAL IV (16:00)
[2020-10-19 20:17] LABS: Hematocrit 29.9 % (36-46); Hemoglobin 9.5 g/dL (12.0-16.0); Mean Corpuscular HGB Conc 31.9 % (30-36); Mean Corpuscular Hemoglobin 23.6 PG (26-34); Mean Corpuscular Volume 73.8 fL (80-100); Platelet Count 287 X10^3/uL (150-400); Red Blood Cell Count 4.05 X10^6/uL (4.0-5.2); Red Cell Distribution Width 21.7 % (11.6-14.8); White Blood Cell Count 7.9 X10^3/uL (4.5-11.0)
--- NOTE | 2020-10-19 20:57 | PC.NURSE ---
regarding blood transfusion, 1st unit #[id number] transfused in 2 hours and 15 minutes and then 2nd unit #[id number] infused in 3 hours and 15 minutes The entire time for both units was 5 hours and 30 minutes. This did not allow me to docuiment it correctly on the TAR
[2020-10-20 09:48] LABS: Hemoglobin 6.8 g/dL (12.0-16.0)
== END 2020-10-19 20:45 | disposition home or self-care (01) ==
PROVIDERS: Emergency Medicine; Emergency Provider Emergency Medicine; PCP Registered Nurse Diabetes Educator
DX: D50.9 Iron deficiency anemia, unspecified (principal); I82.401 Acute embolism and thrombosis of unspecified deep veins of right lower extremity; I26.99 Other pulmonary embolism without acute cor pulmonale; Z79.01 Long term (current) use of anticoagulants; Z90.710 Acquired absence of both cervix and uterus; R06.00 Dyspnea, unspecified; K51.90 Ulcerative colitis, unspecified, without complications; Z92.89 Personal history of other medical treatment
CPT/HCPCS: 36415; 36430; 80053; 82607; 82728; 82746; 83540; 83550; 85025; 85027; 85610; 85730; 86850; 86900; 86901; 96374; 96375; 96376; 99281; 99285; P9016; J1200; J2930

== ENCOUNTER → 2020-10-21 09:58 | Outpatient (CLI) | payer OTHER, SELFPAY ==
--- NOTE | 2020-10-21 10:01 | DI.RAD.S_ITS ---
PROCEDURE: XR CHEST 2V INDICATIONS: shortness of breath TECHNIQUE: 2 views of the chest were acquired. COMPARISON: [facility], CT, CT ANGIO CHEST PE PROTOCOL, 09/30/2020, 16:12. [facility], CR, XR CHEST 2V, 09/30/2020, 14:40. FINDINGS: Surgical changes and devices: A left upper abdomen clip is seen. Lungs and pleura: Lungs are clear. No pleural effusions or pneumothorax. The lungs are hyperexpanded, with flattening of the hemidiaphragms seen. Mediastinum: Mediastinal contours are normal. Heart size is normal. Bones and chest wall: No suspicious bony abnormalities. Age-appropriate bony degenerative changes are seen. S-shaped scoliotic curvature is seen. Soft tissues appear unremarkable. IMPRESSION: No acute cardiopulmonary process is seen. Hyperexpanded lungs can be seen. Dictated by: Primitivo Cerda M.D. on 10/21/2020 at 9:50 Approved by: Primitivo Cerda M.D. on 10/21/2020 at 9:51
[2020-10-21 11:00] LABS: Add Manual Diff / Slide Review NO; Basophils Absolute Auto 100 /uL (0-100); Basophils Percent Auto 0.7 % (0-2); Eosinophils Absolute Auto 100 /uL (0-450); Eosinophils Percent Auto 0.8 % (2-4); Hematocrit 31.5 % (36-46); Hemoglobin 9.8 g/dL (12.0-16.0); Lymphocytes Absolute Auto 2000 /uL (1100-4500); Lymphocytes Percent Auto 23.7 % (25-40); Mean Corpuscular HGB Conc 31.1 % (30-36); Monocytes Absolute Auto 1100 /uL (0-900); Monocytes Percent Auto 12.5 % (3-14); Neutrophils Absolute Auto 5300 /uL (1500-7000); Neutrophils Percent Auto 62.3 % (50-75); Platelet Count 333 X10^3/uL (150-400); Red Blood Cell Count 4.26 X10^6/uL (4.0-5.2); White Blood Cell Count 8.6 X10^3/uL (4.5-11.0)
[2020-10-21 11:24] LABS: Alanine Aminotransferase 17 IU/L (<35); Albumin 3.6 g/dL (3.5-5.0); Albumin Globulin Ratio 1.3 (1.0-2.8); Alkaline Phosphatase 63 U/L (38-126); Aspartate Aminotransferase 28 IU/L (14-36); BUN Creatinine Ratio 17.4 (6-22); Bilirubin Total 0.4 mg/dL (0.2-1.3); Blood Urea Nitrogen 16 mg/dL (7-17); Calcium 9.1 mg/dL (8.4-10.2); Carbon Dioxide 27 mmol/L (22-32); Chloride 107 mmol/L (98-107); Estimated Glomerular Filt Rate > 60.0 mL/min (>60); Globulin 2.7 g/dL (1.7-4.1); Glucose 85 mg/dL (80-110); HEMOLYSIS < 15 (0-50); Potassium 4.4 mmol/L (3.4-5.1); Sodium 138 mmol/L (137-145); Total Protein 6.3 g/dL (6.3-8.2)
[2020-10-21 11:38] LABS: Polychromasia 1+
[2020-10-21 11:39] LABS: Anisocytosis 2+; Basophilic Stippling 1+; Microcytosis 2+
== END ==
PROVIDERS: PCP Registered Nurse Diabetes Educator; Referring Provider Registered Nurse; Visit Provider Registered Nurse
DX: R06.02 Shortness of breath (principal); R53.83 Other fatigue
CPT/HCPCS: 36415; 71046; 80053; 85025

== ENCOUNTER 2020-11-08 18:32 | Emergency (ER) | payer OTHER, SELFPAY ==
[2020-11-08 18:38] VITALS: BP 112/63; PULSE 85; RESP 22; TEMP 36.7; O2SAT 99
[2020-11-08 19:10] LABS: Add Manual Diff / Slide Review NO; Basophils Absolute Auto 100 /uL (0-100); Basophils Percent Auto 1.2 % (0-2); Eosinophils Absolute Auto 100 /uL (0-450); Eosinophils Percent Auto 2.1 % (2-4); Hematocrit 26.2 % (36-46); Hemoglobin 8.2 g/dL (12.0-16.0); Lymphocytes Absolute Auto 1700 /uL (1100-4500); Lymphocytes Percent Auto 32.6 % (25-40); Mean Corpuscular HGB Conc 31.3 % (30-36); Mean Corpuscular Hemoglobin 26.7 PG (26-34); Mean Corpuscular Volume 85.3 fL (80-100); Monocytes Absolute Auto 500 /uL (0-900); Monocytes Percent Auto 8.6 % (3-14); Neutrophils Absolute Auto 2900 /uL (1500-7000); Neutrophils Percent Auto 55.5 % (50-75); Platelet Count 414 X10^3/uL (150-400); Red Blood Cell Count 3.07 X10^6/uL (4.0-5.2); Red Cell Distribution Width 32.6 % (11.6-14.8); White Blood Cell Count 5.3 X10^3/uL (4.5-11.0)
[2020-11-08 19:27] LABS: Anisocytosis 3+; Platelet Estimate Adequate on smear; Polychromasia 1+
[2020-11-08 20:32] VITALS: BP 106/69; PULSE 94; RESP 19; O2SAT 98
--- NOTE | 2020-11-09 05:12 | ED.SOB ---
HPI - SOB/Dyspnea General Chief Complaint: Shortness of Breath/Dyspnea Stated Complaint: SOB Time Seen by Provider: 11/08/20 19:15 Source: patient Mode of arrival: Ambulatory History of Present Illness HPI Narrative: 54-year-old woman with a history of recurrent anemia of unclear etiology but possibility of autoimmune hemolytic anemia with at least 3 units red blood cells transfused in the last month, history of pulmonary embolism currently on Eliquis with known bilateral PEs presents with increasing exertional dyspnea. She is very specific in her requests that she only wants to have a CBC done to make sure that she is not so anemic she needs to be transfused. She has an appointment with her oncologist tomorrow. She had a recent extended hospital stay regarding PEs and reports extensive cardiac workup that was unremarkable and she was told ?the PEs are not affecting her heart right now?. Records are not immediately available. She reports no fevers, palpitations, cough, abdominal pain, change to lower extremity edema. She has not noted any active bleeding. Related Data Home Medications Medication Instructions Recorded Confirmed apixaban PO 10/19/20 11/02/20 biotin 5,000 mcg disintegrating 5,000 mcg PO DAILY tab 10/19/20 11/02/20 tablet cholecalciferol (vitamin D3) 50 50 mcg PO DAILY 10/19/20 11/02/20 mcg (2,000 unit) capsule clobetasol 0.05 % topical ointment 1 applic TOPICAL DAILY 10/19/20 11/02/20 echinacea PO 10/19/20 11/02/20 estradiol 1.25 gram/actuation 1 pump TRANSDERMAL DAILY 10/19/20 11/02/20 (0.06%) transdermal gel pump fluticasone propionate 50 1 spray INTRANASAL DAILY 10/19/20 11/02/20 mcg/actuation nasal spray,suspension lidocaine 5 % topical cream 1 applic TOPICAL BID PRN 10/19/20 11/02/20 loperamide [Imodium A-D] 2 mg PO Q4H PRN 10/19/20 11/02/20 omeprazole 20 mg capsule,delayed 20 mg PO DAILY 10/19/20 11/02/20 release Previous Rx's Medication Instructions Recorded ferrous sulfate 325 mg (65 mg 325 mg PO DAILY 30 Days #30 tab 10/21/20 iron) tablet apixaban 5 mg tablet 5 mg PO BID #60 tab 11/02/20 citalopram 40 mg tablet 40 mg PO DAILY #90 tab 11/02/20 Allergies Allergy/AdvReac Type Severity Reaction Status Date / Time latex Allergy Severe yeast Verified 11/02/20 08:39 infection on skin hydromorphone [From Dilaudid] AdvReac Severe major Verified 11/02/20 08:39 hallucinations Review of Systems Review of Systems ROS Unobtainable: All systems reviewed & are unremarkable except as noted in HPI and below Patient History Medical History Anemia Anxiety Bilateral pulmonary embolism (~2019) DVT (deep venous thrombosis) (~2019) Infertility (~1977) Irregular menstrual cycle Osteopenia Ovarian cyst Ulcerative colitis (~1979) Surgical History Anesthesia History of carpal tunnel release History of colectomy History of hysterectomy History of surgery (~2002) Family History Father DVT (deep venous thrombosis) Social History Smoking Status: Never smoker alcohol intake: current (wine, every now and then) substance use type: does not use Smoking Status: Never smoker alcohol intake frequency: 0-2 drinks per day Alcohol type: wine Substance Use Type: does not use Exam Narrative Exam Narrative: General: Healthy appearing, in no acute distress. Able to give a complete and coherent history. Well-nourished well-developed HEENT: Moist mucous membranes, normal sclera with reactive pupils, Neck: No JVD, supple Respiratory: Lungs are clear to auscultation, no wheezing no rales no rhonchi. Full and symmetrical air movement Cardiac: Regular rate and rhythm no murmurs no bruits Abdomen: Soft nontender good bowel tones, no flank pain Skin: Slightly pale, Warm and dry, no rashes Neurologic: Grossly neurologically intact with no obvious asymmetries or abnormalities Extremities: No trauma, well perfused Psych: Cooperative, appropriate insight and affect Initial Vital Signs Initial Vital Signs: Vital Signs Temperature 98.1 F 11/08/20 18:38 Pulse Rate 85 11/08/20 18:38 Respiratory Rate 22 11/08/20 18:38 Blood Pressure 112/63 11/08/20 18:38 Pulse Oximetry 99 11/08/20 18:38 MDM - SOB/Dyspnea Medical Records Attestation: I reviewed the patient's medical records. Lab Data Attestation: I reviewed the patient's lab results. Result diagrams: 11/08/20 18:58 Labs: Lab Results 11/08/20 Range/Units 18:58 WBC 5.3 (4.5-11.0) X10^3/uL RBC 3.07 L (4.0-5.2) X10^6/uL Hgb 8.2 L (12.0-16.0) g/dL Hct 26.2 L (36-46) % MCV 85.3 (80-100) fL MCH 26.7 (26-34) PG MCHC 31.3 (30-36) % RDW 32.6 H (11.6-14.8) % Plt Count 414 H (150-400) X10^3/uL Neut % (Auto) 55.5 (50-75) % Lymph % (Auto) 32.6 (25-40) % [place] % (Auto) 8.6 (3-14) % Eos % (Auto) 2.1 (2-4) % Baso % (Auto) 1.2 (0-2) % Neut # (Auto) 2900 (3988-1545) /uL Lymph # (Auto) 1700 (4253-7888) /uL [place] # (Auto) 500 (0-900) /uL Eos # (Auto) 100 (0-450) /uL Baso # (Auto) 100 (0-100) /uL Platelet Estimate Adequate on smear RBC Morphology See below Polychromasia 1+ H Anisocytosis 3+ H MDM Narrative Medical decision making narrative: 64-year-old woman with exertional dyspnea increasing with significant workup today regarding this. Concerned that she had worsening anemia. While her hematocrit has dropped slightly it has not dropped so significantly that she needs to be transfused and a not sure that this is a full explanation for the exertional dyspnea. Possibility of acute coronary syndrome, additional pulmonary embolism in the setting of currently being on Eliquis are both possibilities. Based on her history and exam pneumonia an infectious etiology is less likely. We had a long discussion regarding possibilities, current findings and schedule outpatient follow-up for tomorrow. At this point, she would prefer to follow-up as an outpatient with her oncologist prior to doing any additional workup here in the emergency department and is comfortable without a firm diagnosis for her exertional dyspnea this time. She does recognize that she is welcome to come back at any time and if symptoms get worse we do need to be more thorough in our evaluation. At this point she is safe for home discharge. Discharge Plan Departure Patient Disposition: Home Clinical Impression: Shortness of breath Instructions: DI for Shortness of Breath Activity Restrictions/Additional Instructions: Thank you for coming in today Your hemoglobin is 8.2 in your hematocrit is 26.2. On October 21 the numbers were 9.8 and 31.5 We had a nice discussion about additional workup and causes of exertional dyspnea. For today, we opted to do no additional studies and you will contact Dr. Lemon tomorrow to see with the rest of the plan is for whether this is an autoimmune hemolytic anemia or anti phospholipid syndrome. With your clinical exam today there is no evidence of infection, collapsed lung, congestive heart failure, COPD/asthma to explain your exertional dyspnea. We chose to not fully explore the possibility of your heart being the cause of your exertional dyspnea as you were recently hospitalized with quite a bit of workup done at that point that did not suggest a cardiac etiology. If you are getting worse including worsening dyspnea, any chest pain, inability to lie flat, dizzy when your standing up or fevers you do need to come back to the emergency room and we need to be more complete with our evaluation. I wish you the very best Prescriptions: No Action apixaban PO RF: 0 biotin 5,000 mcg tablet,disintegrating 5,000 mcg PO DAILY RF: 0 echinacea 760 mg PO RF: 0 cholecalciferol (vitamin D3) 50 mcg (2,000 unit) capsule 50 mcg PO DAILY RF: 0 omeprazole 20 mg capsule,delayed release(DR/EC) 20 mg PO DAILY RF: 0 fluticasone propionate 50 mcg/actuation spray,suspension 1 spray intranasal DAILY RF: 0 clobetasol 0.05 % ointment 1 applic topical DAILY RF: 0 lidocaine 5 % cream 1 applic topical BID PRN (Reason: Pain (Scale Score 1-3)) RF: 0 EstroGel 1.25 gram/actuation gel in metered-dose pump 1 pump transdermal DAILY RF: 0 ferrous sulfate [Iron (ferrous sulfate)] 325 mg (65 mg iron) tablet 325 mg PO DAILY 30 Days Qty: 30 RF: 2 Eliquis 5 mg tablet 5 mg PO BID Qty: 60 RF: 5 citalopram 40 mg tablet 40 mg PO DAILY Qty: 90 RF: 3 loperamide [Imodium A-D] 2 mg Capsule 2 mg PO Q4H PRN (Reason: Diarrhea) RF: 0 Referrals: Yung Lozoya ARNP [Primary Care Provider] -
== END 2020-11-08 20:30 | disposition home or self-care (01) ==
PROVIDERS: Emergency Provider Emergency Medicine; PCP Registered Nurse Diabetes Educator
DX: R06.02 Shortness of breath (principal); I26.99 Other pulmonary embolism without acute cor pulmonale
CPT/HCPCS: 85025; 99281; 99283

== ENCOUNTER 2020-11-23 13:02 | Emergency (ER) | payer OTHER, SELFPAY ==
[2020-11-23] VITALS (22 sets, daily range): BP systolic 103–129; BP diastolic 57–72; PULSE 72–95; RESP 15–26; TEMP 36.8–37.2; O2SAT 96–100; BMI 23.3
--- NOTE | 2020-11-23 13:33 | ED_ITS ---
HPI - Recheck/Abnormal Lab/Rx General Chief Complaint: Recheck/Abnormal Lab/Rx Stated Complaint: SOB RECTAL BLEEDING ABNORMAL LABS Time Seen by Provider: 11/23/20 13:12 Source: patient Mode of arrival: Wheelchair Limitations: no limitations History of Present Illness HPI narrative: Patient is a 64-year-old female with history of ulcerative colitis with J pouch, recent DVT PE on Eliquis, iron deficiency anemia pres enting from Hematology with hemoglobin of 6.6 and increasing shortness of breath. She states over the past couple of weeks she has had bright red blood per rectum. She says she has at least 8 bowel movements a day and possibly 1/3 of them are bright red blood. This is been ongoing for some time. However with her increasing shortness of breath and anemia she was sent here for further evaluation. She feels dizzy and lightheaded when she stands. Her shortness of breath is worse with exertion. MD complaint: abnormal lab Related Data Home Medications Medication Instructions Recorded Confirmed apixaban PO 10/19/20 11/02/20 biotin 5,000 mcg disintegrating 5,000 mcg PO DAILY tab 10/19/20 11/02/20 tablet cholecalciferol (vitamin D3) 50 50 mcg PO DAILY 10/19/20 11/02/20 mcg (2,000 unit) capsule clobetasol 0.05 % topical ointment 1 applic TOPICAL DAILY 10/19/20 11/02/20 echinacea PO 10/19/20 11/02/20 estradiol 1.25 gram/actuation 1 pump TRANSDERMAL DAILY 10/19/20 11/02/20 (0.06%) transdermal gel pump fluticasone propionate 50 1 spray INTRANASAL DAILY 10/19/20 11/02/20 mcg/actuation nasal spray,suspension lidocaine 5 % topical cream 1 applic TOPICAL BID PRN 10/19/20 11/02/20 loperamide [Imodium A-D] 2 mg PO Q4H PRN 10/19/20 11/02/20 omeprazole 20 mg capsule,delayed 20 mg PO DAILY 10/19/20 11/02/20 release Previous Rx's Medication Instructions Recorded ferrous sulfate 325 mg (65 mg 325 mg PO DAILY 30 Days #30 tab 10/21/20 iron) tablet apixaban 5 mg tablet 5 mg PO BID #60 tab 11/02/20 citalopram 40 mg tablet 40 mg PO DAILY #90 tab 11/02/20 Allergies Allergy/AdvReac Type Severity Reaction Status Date / Time latex Allergy Severe yeast Verified 11/09/20 13:29 infection on skin hydromorphone [From Dilaudid] AdvReac Severe major Verified 11/09/20 13:29 hallucinations Review of Systems Review of Systems ROS Unobtainable: All systems reviewed & are unremarkable except as noted in HPI and below Constitutional Constitutional: Denies chills, Denies fever(s), Denies lethargy and Denies weakness Cardiovascular Cardiovascular: Denies chest pain, Denies irregular heart rhythm, Denies lightheadedness, Denies palpitations and Reports dyspnea on exertion Respiratory Respiratory: Reports dyspnea on exertion Gastrointestinal Gastrointestinal: Denies abdominal pain, Reports hematochezia, Denies change in bowel habits, Denies diarrhea, Denies nausea and Denies vomiting Musculoskeletal Musculoskeletal: Denies back pain and Denies myalgias Integumentary/Breasts Skin/Breast: Denies pruritus, Denies erythema, Denies rash and Denies wounds Neurologic Neurologic: Denies weakness Endocrine Endocrine: Denies palpitations Patient History Medical History Anemia Anxiety Bilateral pulmonary embolism (~2019) DVT (deep venous thrombosis) (~2019) Infertility (~1977) Irregular menstrual cycle Osteopenia Ovarian cyst Ulcerative colitis (~1979) Surgical History Anesthesia History of carpal tunnel release History of colectomy History of hysterectomy History of surgery (~2002) Family History Father DVT (deep venous thrombosis) Social History Smoking Status: Never smoker alcohol intake: current (wine, every now and then) substance use type: does not use Smoking Status: Never smoker alcohol intake frequency: 0-2 drinks per day Alcohol type: wine Substance Use Type: does not use Exam Initial Vital Signs Initial Vital Signs: Vital Signs Pulse Rate 87 11/23/20 13:17 Respiratory Rate 26 H 11/23/20 13:17 Pulse Oximetry 100 11/23/20 13:17 GENERAL: Well-appearing, well-nourished and in no acute distress. HEENT: Head atraumatic,EOMI, pupils reactive, face symmetric, moist mucous membranes CARDIOVASCULAR: Regular rate and rhythm without murmurs, rubs or gallops. RESPIRATORY: Breath sounds equal bilaterally, no wheezes rales or rhonchi. ABDOMEN: Soft, nontender. Normoactive bowel sounds all 4 quadrants. No guarding or rebound. RECTAL: Extremely painful : No CVA tenderness EXTREMITIES: Normal range of motion, no clubbing or edema. Neurovascularly intact NEUROLOGICAL: Alert and oriented x4.Normal gait and speech. SKIN: Warm, dry, no laceration, no petechiae, no rashes or lesions. Course Orders Ordered: ED Orders 11/23/20 13:15 Packed Cells Stat Type and Screen Stat 11/23/20 13:45 Comprehensive Metabolic Panel Stat Partial Thromboplastin Time Stat Prothrombin Time INR Stat 11/23/20 14:16 XR chest 1V Stat Vital Signs Vital signs: Vital Signs - 8 hr 11/23/20 13:17 11/23/20 13:19 11/23/20 13:30 Temperature 98.9 F Pulse Rate 87 89 90 Respiratory Rate 26 H 21 20 Blood Pressure 119/66 119/63 Pulse Oximetry 100 100 100 11/23/20 14:00 11/23/20 14:30 11/23/20 14:40 Temperature 98.6 F Pulse Rate 90 89 91 H Respiratory Rate 19 20 20 Blood Pressure 111/61 106/67 106/67 Pulse Oximetry 96 100 11/23/20 14:56 11/23/20 15:00 11/23/20 15:30 Temperature 98.3 F Pulse Rate 84 85 Respiratory Rate 20 21 Blood Pressure 103/61 103/61 108/61 Pulse Oximetry 100 11/23/20 16:00 11/23/20 16:30 11/23/20 16:35 Temperature 98.4 F Pulse Rate 92 H 92 H Respiratory Rate 15 20 Blood Pressure 110/62 116/57 L 116/57 L Pulse Oximetry 98 11/23/20 16:59 11/23/20 17:00 11/23/20 17:16 Temperature 98.4 F 98.6 F Pulse Rate 93 H 91 H 72 Respiratory Rate 15 17 Blood Pressure 109/63 109/63 129/72 Pulse Oximetry 97 97 11/23/20 17:30 11/23/20 17:43 11/23/20 17:45 Temperature Pulse Rate 91 H 91 H 91 H Respiratory Rate 22 17 16 Blood Pressure 109/61 110/58 L Pulse Oximetry 100 99 98 11/23/20 18:00 11/23/20 18:15 11/23/20 18:30 Temperature Pulse Rate 92 H 90 89 Respiratory Rate 21 22 15 Blood Pressure 108/65 108/64 117/61 Pulse Oximetry 98 98 99 11/23/20 18:41 Temperature 99.0 F Pulse Rate 89 Respiratory Rate 21 Blood Pressure 117/61 Pulse Oximetry MDM - Recheck/Abnormal Lab/Rx Lab Data Attestation: I reviewed the patient's lab results. Result diagrams: 11/23/20 13:45 11/23/20 13:45 Labs: Lab Results 11/23/20 11/23/20 11/23/20 Range/Units 13:15 13:45 13:45 PT 12.8 H (10.1-12.7) SECONDS INR 1.1 (0.9-1.3) APTT 28 (26.4-36.2) SECONDS Sodium 135 L (137-145) mmol/L Potassium 4.3 (3.4-5.1) mmol/L Chloride 111 H (98-107) mmol/L Carbon Dioxide 22 (22-32) mmol/L BUN 12 (7-17) mg/dL Creatinine 1.23 H (0.52-1.04) mg/dL Estimated GFR 44.1 L (>60) mL/min BUN/Creatinine Ratio 9.8 (6-22) Glucose 90 (80-110) mg/dL Calcium 7.8 L (8.4-10.2) mg/dL Total Bilirubin < 0.1 L (0.2-1.3) mg/dL AST 25 (14-36) IU/L ALT 15 (<35) IU/L Alkaline Phosphatase 57 (38-126) U/L Total Protein 4.9 L (6.3-8.2) g/dL Albumin 2.8 L (3.5-5.0) g/dL Globulin 2.1 (1.7-4.1) g/dL Albumin/Globulin Ratio 1.3 (1.0-2.8) Blood Type A Positive Antibody Screen Negative Crossmatch See Detail MDM Narrative Medical decision making narrative: Patient is anemic with hemoglobin 6.6 hematocrit 21.5. On November 15 was 8.8 and 27.9. She has chronic on going anemia which is likely exacerbated today by rectal bleeding on Eliquis. It is unclear why patient developed DVT, she is being followed by Hematology and has blood work pending. Her shortness of breath with exertion is likely related to her anemia. Will transfuse 2 units. 14:25 Dr. Menezes, surgery. At this time no indication for immediate scope. Happy to see patient in the clinic. Recommends continued Eliquis with known DVT and pulmonary embolism. She actually has a tele health appointment with GI in 2 days. Discharge Plan Departure Patient Disposition: Home Clinical Impression: Anemia, Ulcerative colitis, Bilateral pulmonary embolism Instructions: DI for Rectal Bleeding Activity Restrictions/Additional Instructions: *You have been diagnosed with anemia *What to do: Please have your blood rechecked this week with hematology. At this time continue Eliquis however if your rectal bleeding worsens it may need to be stopped but please come to the ER for evaluation if this occurs. *Continue to take medications as directed *Follow up with your primary care provider in 2-3 days *Return to ER if you should have increasing shortness of breath, worsening rectal bleeding, abdominal pain, dizziness or lightheaded or any new, worsening or concerning symptoms Prescriptions: No Action apixaban PO RF: 0 biotin 5,000 mcg tablet,disintegrating 5,000 mcg PO DAILY RF: 0 echinacea 760 mg PO RF: 0 cholecalciferol (vitamin D3) 50 mcg (2,000 unit) capsule 50 mcg PO DAILY RF: 0 omeprazole 20 mg capsule,delayed release(DR/EC) 20 mg PO DAILY RF: 0 fluticasone propionate 50 mcg/actuation spray,suspension 1 spray intranasal DAILY RF: 0 clobetasol 0.05 % ointment 1 applic topical DAILY RF: 0 lidocaine 5 % cream 1 applic topical BID PRN (Reason: Pain (Scale Score 1-3)) RF: 0 EstroGel 1.25 gram/actuation gel in metered-dose pump 1 pump transdermal DAILY RF: 0 ferrous sulfate [Iron (ferrous sulfate)] 325 mg (65 mg iron) tablet 325 mg PO DAILY 30 Days Qty: 30 RF: 2 Eliquis 5 mg tablet 5 mg PO BID Qty: 60 RF: 5 citalopram 40 mg tablet 40 mg PO DAILY Qty: 90 RF: 3 loperamide [Imodium A-D] 2 mg Capsule 2 mg PO Q4H PRN (Reason: Diarrhea) RF: 0 Referrals: Boby Menezes MD [Physician] - David Farias MD [Physician] - Yung Lozoya ARNP [Primary Care Provider] -
--- NOTE | 2020-11-23 13:48 | PC.SBAR ---
SITUATION: [] BACKGROUND: [] ASSESSMENT: [] RECOMMENDATION: [] RESPONSE: []
--- NOTE | 2020-11-23 13:49 | PC.NURSE ---
Sent from infusion clinic for abnormal lab, dizziness and increasing shortness of breath, bright red blood in stool. Pt reports shortness of breath worsened yesterday and bright red blood in stool has been going on since starting eliquis after DVT/PE diagnosis 5 weeks ago.
[2020-11-23 14:00] LABS: INR 1.1 (0.9-1.3); Prothrombin Time 12.8 SECONDS (10.1-12.7)
[2020-11-23 14:02] LABS: PTT Partial Thromboplastin Tim 28 SECONDS (26.4-36.2)
[2020-11-23 14:05] LABS: Alanine Aminotransferase 15 IU/L (<35); Albumin 2.8 g/dL (3.5-5.0); Albumin Globulin Ratio 1.3 (1.0-2.8); Alkaline Phosphatase 57 U/L (38-126); Aspartate Aminotransferase 25 IU/L (14-36); BUN Creatinine Ratio 9.8 (6-22); Blood Urea Nitrogen 12 mg/dL (7-17); Calcium 7.8 mg/dL (8.4-10.2); Carbon Dioxide 22 mmol/L (22-32); Chloride 111 mmol/L (98-107); Estimated Glomerular Filt Rate 44.1 mL/min (>60); Globulin 2.1 g/dL (1.7-4.1); Glucose 90 mg/dL (80-110); HEMOLYSIS < 15 (0-50); Potassium 4.3 mmol/L (3.4-5.1); Sodium 135 mmol/L (137-145); Total Protein 4.9 g/dL (6.3-8.2)
[2020-11-23 14:10] LABS: Bilirubin Total < 0.1 mg/dL (0.2-1.3)
--- NOTE | 2020-11-23 14:16 | DI.RAD.S_ITS ---
PROCEDURE: XR CHEST 1V INDICATIONS: short of breath TECHNIQUE: One view of the chest was acquired. COMPARISON: [facility], CT, CT ANGIO CHEST PE PROTOCOL, 09/30/2020, 16:12. [facility], CR, XR CHEST 2V, 09/30/2020, 14:40. [facility], CR, XR CHEST 2V, 10/21/2020, 10:08. FINDINGS: Surgical changes and devices: None. Lungs and pleura: Lungs are clear. No pleural effusions or pneumothorax. Mediastinum: Mediastinal contours appear normal. Heart size is normal. Bones and chest wall: No suspicious bony lesions. Age-appropriate bony degenerative changes are seen. Mild levoconvex scoliotic curvature is noted. Overlying soft tissues appear unremarkable. IMPRESSION: No acute cardiopulmonary process is seen. Dictated by: Primitivo Cerda M.D. on 11/23/2020 at 13:37 Approved by: Primitivo Cerda M.D. on 11/23/2020 at 13:38
--- NOTE | 2020-11-23 17:45 | PC.NURSE ---
Blood transfusion stopped temporarily shortly after starting for approx 30 minutes due to IV no longer working. New IV started by Shaila Perez RN,restarted transfusion at [id number]
== END 2020-11-23 19:07 | disposition home or self-care (01) ==
PROVIDERS: Emergency Provider Emergency Medicine; PCP Registered Nurse Diabetes Educator
DX: K51.90 Ulcerative colitis, unspecified, without complications (principal); D50.9 Iron deficiency anemia, unspecified; I26.99 Other pulmonary embolism without acute cor pulmonale; R06.02 Shortness of breath; I82.409 Acute embolism and thrombosis of unspecified deep veins of unspecified lower extremity; Z79.01 Long term (current) use of anticoagulants; R42 Dizziness and giddiness; R79.89 Other specified abnormal findings of blood chemistry
CPT/HCPCS: 36430; 71045; 80053; 85610; 85730; 86850; 86900; 86901; 99283; 99284; P9016

== ENCOUNTER → 2020-12-11 11:10 | Outpatient (CLI) | payer OTHER, SELFPAY ==
[2020-12-11 12:20] LABS: COVID19 -Nasal RAPID Negative (Negative)
== END ==
PROVIDERS: PCP Registered Nurse Diabetes Educator; Visit Provider Physician Assistant
DX: Z20.822 Contact with and (suspected) exposure to COVID-19 (principal)
CPT/HCPCS: 87635

== ENCOUNTER → 2021-03-22 13:29 | Outpatient (CLI) | payer OTHER, SELFPAY ==
--- NOTE | 2021-03-22 13:30 | DI.RAD.S_ITS ---
PROCEDURE: XR CHEST 2V INDICATIONS: sob TECHNIQUE: 2 views of the chest were acquired. COMPARISON: [facility], CR, XR CHEST 1V, 11/23/2020, 14:22. FINDINGS: Surgical changes and devices: None. Lungs and pleura: Lungs are clear. No pleural effusions or pneumothorax. Mediastinum: Mediastinal contours are normal. Heart size is enlarged. Bones and chest wall: No suspicious bony abnormalities. Soft tissues appear unremarkable. IMPRESSION: No acute cardiopulmonary process. Dictated by: Brooks Gaines M.D. on 03/22/2021 at 14:02 Approved by: Brooks Gaines M.D. on 03/22/2021 at 14:14
--- NOTE | 2021-03-22 13:30 | DI.RAD.S_ITS ---
PROCEDURE: XR SHOULDER LT MIN 2V INDICATIONS: sob TECHNIQUE: 3 views of the shoulder were acquired. COMPARISON: None. FINDINGS: Bones: Mild AC and glenohumeral osteoarthritis . No acute fracture identified. Soft tissues: No suspicious soft tissue calcifications. IMPRESSION: Mild osteoarthritis. If the patient's pain or other symptoms persist, consider further evaluation with MRI Dictated by: Barrera Lemon M.D. on 03/22/2021 at 15:12 Approved by: Barrera Lemon M.D. on 03/22/2021 at 15:14
== END ==
PROVIDERS: PCP Registered Nurse Diabetes Educator; Referring Provider Registered Nurse; Visit Provider Registered Nurse
DX: R06.02 Shortness of breath (principal); M25.512 Pain in left shoulder; M19.012 Primary osteoarthritis, left shoulder
CPT/HCPCS: 71046; 73030

== ENCOUNTER → 2021-05-10 10:29 | Outpatient (CLI) | payer OTHER, SELFPAY ==
--- NOTE | 2021-05-10 | DI.MG.S_ITS ---
BILATERAL DIGITAL SCREENING MAMMOGRAM 3D/2D WITH CAD: 05/10/2021 Comparison is made to exams dated: 04/28/2020 mammogram, 03/05/2019 mammogram, 02/20/2018 mammogram, and 02/07/2018 mammogram - [facility]. The tissue of both breasts is heterogeneously dense. This may lower the sensitivity of mammography. Current study was also evaluated with a Computer Aided Detection (CAD) system. There is a biopsy clip in the right breast. No significant masses, calcifications, or other findings are seen in either breast. There has been no significant interval change. IMPRESSION: NEGATIVE There is no mammographic evidence of malignancy. A 1 year screening mammogram is recommended. This exam was interpreted at Station ID: [id number]. NOTE: For mammograms, a report in lay terms will be sent to the patient. Approximately 15% of breast malignancies will not be visualized mammographically. In the management of a palpable breast mass, a negative mammogram must not discourage biopsy of a clinically suspicious lesion. Electronically Signed By: Ron Cavazos M.D., jr/lewis:05/12/2021 10:24:28 letter sent: Normal Exam ACR BI-RADS Category 1: Negative [id number]
== END ==
PROVIDERS: PCP Registered Nurse Diabetes Educator; Referring Provider Registered Nurse Diabetes Educator; Visit Provider Registered Nurse Diabetes Educator
DX: Z12.31 Encounter for screening mammogram for malignant neoplasm of breast (principal); M85.851 Other specified disorders of bone density and structure, right thigh; Z78.0 Asymptomatic menopausal state; Z90.722 Acquired absence of ovaries, bilateral; Z82.62 Family history of osteoporosis
CPT/HCPCS: 77063; 77067; 77080

== ENCOUNTER → 2021-06-02 09:34 | Outpatient (CLI) | payer OTHER, SELFPAY ==
[2021-06-02 09:47] LABS: Add Manual Diff / Slide Review NO; Basophils Absolute Auto 0 /uL (0-100); Basophils Percent Auto 0.9 % (0-2); Eosinophils Absolute Auto 100 /uL (0-450); Eosinophils Percent Auto 1.1 % (2-4); Hematocrit 24.7 % (36-46); Lymphocytes Absolute Auto 1400 /uL (1100-4500); Lymphocytes Percent Auto 29.3 % (25-40); Mean Corpuscular HGB Conc 32.2 % (30-36); Mean Corpuscular Hemoglobin 27.2 PG (26-34); Mean Corpuscular Volume 84.2 fL (80-100); Monocytes Absolute Auto 600 /uL (0-900); Monocytes Percent Auto 11.5 % (3-14); Neutrophils Absolute Auto 2800 /uL (1500-7000); Neutrophils Percent Auto 57.2 % (50-75); Platelet Count 270 X10^3/uL (150-400); Red Blood Cell Count 2.94 X10^6/uL (4.0-5.2); Red Cell Distribution Width 15.5 % (11.6-14.8); White Blood Cell Count 4.9 X10^3/uL (4.5-11.0)
[2021-06-02 11:06] LABS: HEMOLYSIS < 15 (0-50); Iron 18 ug/dL (37-170)
[2021-06-02 11:15] LABS: Alanine Aminotransferase 16 IU/L (<35); Albumin 3.5 g/dL (3.5-5.0); Albumin Globulin Ratio 1.4 (1.0-2.8); Alkaline Phosphatase 53 U/L (38-126); Aspartate Aminotransferase 24 IU/L (14-36); BUN Creatinine Ratio 21.7 (6-22); Bilirubin Total 0.2 mg/dL (0.2-1.3); Blood Urea Nitrogen 18 mg/dL (7-17); Calcium 8.9 mg/dL (8.4-10.2); Carbon Dioxide 27 mmol/L (22-32); Chloride 108 mmol/L (98-107); Estimated Glomerular Filt Rate > 60.0 mL/min (>60); Globulin 2.5 g/dL (1.7-4.1); Glucose 93 mg/dL (80-110); HEMOLYSIS < 15 (0-50); Potassium 4.4 mmol/L (3.4-5.1); Sodium 139 mmol/L (137-145)
[2021-06-02 11:19] LABS: Percent Iron Saturation 5 % (15-50); Total Iron Binding Capacity 392 ug/dL (265-497); Transferrin 313 mg/dL (206-381)
[2021-06-02 11:42] LABS: Ferritin 9 ng/mL (11-264)
== END ==
PROVIDERS: PCP Registered Nurse Diabetes Educator; Referring Provider Registered Nurse Diabetes Educator; Visit Provider Registered Nurse Diabetes Educator
DX: D64.9 Anemia, unspecified (principal); R06.02 Shortness of breath
CPT/HCPCS: 36415; 80053; 82728; 83540; 83550; 85025

== ENCOUNTER → 2022-01-17 13:11 | Outpatient (CLI) | payer MEDICARE, OTHER, SELFPAY ==
[2022-01-17 14:31] LABS: Add Manual Diff / Slide Review NO; Basophils Absolute Auto 0 /uL (0-100); Basophils Percent Auto 0.5 % (0-2); Eosinophils Absolute Auto 100 /uL (0-450); Eosinophils Percent Auto 0.7 % (2-4); Hematocrit 35.2 % (36-46); Hemoglobin 11.5 g/dL (12.0-16.0); Lymphocytes Absolute Auto 1500 /uL (1100-4500); Lymphocytes Percent Auto 19.6 % (25-40); Mean Corpuscular HGB Conc 32.7 % (30-36); Mean Corpuscular Volume 97.8 fL (80-100); Monocytes Absolute Auto 700 /uL (0-900); Monocytes Percent Auto 8.6 % (3-14); Neutrophils Absolute Auto 5500 /uL (1500-7000); Neutrophils Percent Auto 70.6 % (50-75); Platelet Count 268 X10^3/uL (150-400); Red Blood Cell Count 3.59 X10^6/uL (4.0-5.2); Red Cell Distribution Width 13.4 % (11.6-14.8); White Blood Cell Count 7.8 X10^3/uL (4.5-11.0)
[2022-01-17 14:40] LABS: HEMOLYSIS < 15 (0-50); Iron 57 ug/dL (37-170)
[2022-01-17 14:44] LABS: Alanine Aminotransferase 33 IU/L (<35); Albumin 4.3 g/dL (3.5-5.0); Albumin Globulin Ratio 1.7 (1.0-2.8); Alkaline Phosphatase 57 U/L (38-126); Aspartate Aminotransferase 40 IU/L (14-36); BUN Creatinine Ratio 13.4 (6-22); Bilirubin Total 0.3 mg/dL (0.2-1.3); Blood Urea Nitrogen 13 mg/dL (7-17); C-Reactive Protein Quant 0.7 mg/dL (<1.0); Calcium 9.2 mg/dL (8.4-10.2); Carbon Dioxide 26 mmol/L (22-32); Chloride 107 mmol/L (98-107); Estimated Glomerular Filt Rate 57.6 mL/min (>60); Globulin 2.6 g/dL (1.7-4.1); Glucose 115 mg/dL (80-110); HEMOLYSIS < 15 (0-50); Sodium 140 mmol/L (137-145); Total Protein 6.9 g/dL (6.3-8.2)
[2022-01-17 14:50] LABS: Percent Iron Saturation 18 % (15-50); Total Iron Binding Capacity 319 ug/dL (265-497); Transferrin 281 mg/dL (206-381)
[2022-01-17 15:15] LABS: Ferritin 54 ng/mL (11-264)
== END ==
PROVIDERS: Internal Medicine Hematology & Oncology; PCP Registered Nurse Diabetes Educator; Referring Provider Internal Medicine Gastroenterology; Visit Provider Internal Medicine Gastroenterology
DX: K50.00 Crohn's disease of small intestine without complications (principal); D50.9 Iron deficiency anemia, unspecified
CPT/HCPCS: 36415; 80053; 82728; 83540; 83550; 85025; 86140

== ENCOUNTER → 2022-02-20 13:11 | Outpatient (CLI) | payer MEDICARE, OTHER, SELFPAY ==
[2022-02-20 13:52] LABS: Add Manual Diff / Slide Review NO; Basophils Absolute Auto 0 /uL (0-100); Basophils Percent Auto 0.3 % (0-2); Eosinophils Absolute Auto 100 /uL (0-450); Eosinophils Percent Auto 0.9 % (2-4); Hematocrit 36.6 % (36-46); Hemoglobin 12.1 g/dL (12.0-16.0); Lymphocytes Absolute Auto 1300 /uL (1100-4500); Lymphocytes Percent Auto 18.6 % (25-40); Mean Corpuscular Hemoglobin 30.6 PG (26-34); Mean Corpuscular Volume 92.9 fL (80-100); Monocytes Absolute Auto 500 /uL (0-900); Monocytes Percent Auto 7.3 % (3-14); Neutrophils Absolute Auto 4900 /uL (1500-7000); Neutrophils Percent Auto 72.9 % (50-75); Platelet Count 276 X10^3/uL (150-400); Red Blood Cell Count 3.94 X10^6/uL (4.0-5.2); Red Cell Distribution Width 13.3 % (11.6-14.8); White Blood Cell Count 6.7 X10^3/uL (4.5-11.0)
[2022-02-20 14:11] LABS: Alanine Aminotransferase 36 IU/L (<35); Albumin 4.3 g/dL (3.5-5.0); Albumin Globulin Ratio 1.5 (1.0-2.8); Alkaline Phosphatase 63 U/L (38-126); Aspartate Aminotransferase 49 IU/L (14-36); BUN Creatinine Ratio 13.3 (6-22); Bilirubin Total 0.2 mg/dL (0.2-1.3); Blood Urea Nitrogen 11 mg/dL (7-17); Calcium 9.2 mg/dL (8.4-10.2); Carbon Dioxide 23 mmol/L (22-32); Chloride 107 mmol/L (98-107); Estimated Glomerular Filt Rate > 60.0 mL/min (>60); Globulin 2.9 g/dL (1.7-4.1); Glucose 114 mg/dL (80-110); HEMOLYSIS < 15 (0-50); Potassium 3.8 mmol/L (3.4-5.1); Sodium 139 mmol/L (137-145); Total Protein 7.2 g/dL (6.3-8.2)
[2022-02-20 14:11] LABS: HEMOLYSIS < 15 (0-50); Iron 72 ug/dL (37-170)
[2022-02-20 14:22] LABS: Percent Iron Saturation 23 % (15-50); Total Iron Binding Capacity 320 ug/dL (265-497); Transferrin 260 mg/dL (206-381)
[2022-02-20 14:42] LABS: C-Reactive Protein Quant 1.9 mg/dL (<1.0)
[2022-02-20 14:46] LABS: Ferritin 34 ng/mL (11-264)
== END ==
PROVIDERS: Internal Medicine Hematology & Oncology; PCP Registered Nurse Diabetes Educator; Referring Provider Internal Medicine Gastroenterology; Visit Provider Internal Medicine Gastroenterology
DX: K50.00 Crohn's disease of small intestine without complications (principal); D50.9 Iron deficiency anemia, unspecified; K51.90 Ulcerative colitis, unspecified, without complications
CPT/HCPCS: 36415; 80053; 82728; 83540; 83550; 85025; 86140

== ENCOUNTER → 2022-03-21 13:05 | Outpatient (CLI) | payer MEDICARE, OTHER, SELFPAY ==
[2022-03-21 14:03] LABS: Add Manual Diff / Slide Review NO; Basophils Absolute Auto 0 /uL (0-100); Basophils Percent Auto 0.7 % (0-2); Eosinophils Absolute Auto 100 /uL (0-450); Eosinophils Percent Auto 1.5 % (2-4); Hematocrit 38.2 % (36-46); Hemoglobin 12.5 g/dL (12.0-16.0); Lymphocytes Absolute Auto 1300 /uL (1100-4500); Lymphocytes Percent Auto 27.4 % (25-40); Mean Corpuscular HGB Conc 32.7 % (30-36); Mean Corpuscular Hemoglobin 29.8 PG (26-34); Mean Corpuscular Volume 91.2 fL (80-100); Monocytes Absolute Auto 400 /uL (0-900); Monocytes Percent Auto 8.2 % (3-14); Neutrophils Absolute Auto 3000 /uL (1500-7000); Neutrophils Percent Auto 62.2 % (50-75); Platelet Count 225 X10^3/uL (150-400); Red Blood Cell Count 4.19 X10^6/uL (4.0-5.2); Red Cell Distribution Width 13.7 % (11.6-14.8); White Blood Cell Count 4.9 X10^3/uL (4.5-11.0)
[2022-03-21 15:19] LABS: Ferritin 19 ng/mL (11-264)
[2022-03-21 15:21] LABS: HEMOLYSIS < 15 (0-50); Iron 208 ug/dL (37-170)
[2022-03-21 15:30] LABS: Alanine Aminotransferase 47 IU/L (<35); Albumin 4.2 g/dL (3.5-5.0); Albumin Globulin Ratio 1.7 (1.0-2.8); Alkaline Phosphatase 65 U/L (38-126); Aspartate Aminotransferase 59 IU/L (14-36); BUN Creatinine Ratio 13.3 (6-22); Bilirubin Total 0.4 mg/dL (0.2-1.3); Blood Urea Nitrogen 12 mg/dL (7-17); C-Reactive Protein Quant 0.8 mg/dL (<1.0); Calcium 9.3 mg/dL (8.4-10.2); Carbon Dioxide 22 mmol/L (22-32); Chloride 108 mmol/L (98-107); Estimated Glomerular Filt Rate > 60 mL/min (>60); Globulin 2.5 g/dL (1.7-4.1); Glucose 117 mg/dL (80-110); HEMOLYSIS < 15 (0-50); Potassium 3.7 mmol/L (3.4-5.1); Sodium 140 mmol/L (137-145); Total Protein 6.7 g/dL (6.3-8.2)
[2022-03-21 15:32] LABS: Percent Iron Saturation 58 % (15-50); Total Iron Binding Capacity 357 ug/dL (265-497); Transferrin 291 mg/dL (206-381)
== END ==
PROVIDERS: Internal Medicine Hematology & Oncology; PCP Registered Nurse Diabetes Educator; Referring Provider Internal Medicine Gastroenterology; Visit Provider Internal Medicine Gastroenterology
DX: K50.00 Crohn's disease of small intestine without complications (principal); D50.9 Iron deficiency anemia, unspecified
CPT/HCPCS: 36415; 80053; 82728; 83540; 83550; 85025; 86140

== ENCOUNTER 2022-05-04 10:09 | Emergency (ER) | payer MEDICARE, OTHER, SELFPAY ==
[2022-05-04 10:23] VITALS: BP 120/79; PULSE 74; RESP 14; TEMP 36.5; O2SAT 100; BMI 25.7
--- NOTE | 2022-05-04 10:33 | DI.US.S_ITS ---
PROCEDURE: US PERIPH VENOUS LOW EXTREM RT INDICATIONS: eval for DVT TECHNIQUE: Real-time imaging, as well as color and pulse Doppler interrogation, were performed of the lower extremity deep veins from the inguinal ligament to the popliteal fossa. COMPARISON: [facility], US, US VENOUS LOWER EXTREMITY DOPPLER BILATERAL, 03/31/2021, 7:57. FINDINGS: The common femoral, femoral and popliteal veins are normally compressible, and free of acute intraluminal thrombus. Previously seen nonocclusive thrombus in the distal superficial femoral vein in the adductor canal extending into the right popliteal vein. Color and pulse Doppler demonstrate normal phasic intraluminal flow. There is normal augmentation response to distal compression maneuver. IMPRESSION: No sonographic evidence of acute DVT. There is a small amount of chronic eccentric nonocclusive thrombus in the in the distal right superficial femoral vein in the adductor canal as well as the right popliteal vein is similar to the prior study. Dictated by: Ron Cavazos M.D. on 05/04/2022 at 12:30 Approved by: Ron Cavazos M.D. on 05/04/2022 at 12:57
--- NOTE | 2022-05-04 12:31 | ED_ITS ---
HPI - Extremity Problem <Katie Hernandez ADMINISTRATIVE OPERATIONS COORDINATOR - Last Filed: 05/04/22 16:35> General Chief complaint: Extremity Problem,Nontraumatic Stated complaint: Right leg swollen- hx of DVT & pulm embolisms Time Seen by Provider: 05/04/22 10:32 Source: patient Mode of arrival: Ambulatory History of Present Illness HPI Narrative: This is a 66-year-old female with history of right popliteal DVT approximately one year ago, Crohn's disease, and is on Eliquis reduced dosing for GI bleeding. She presents to the emergency department for increased swelling of her right lower extremity over the last week with history of pulmonary embolisms, this prior DVT with resolution of her swelling previously and concerned that there is a new DVT. Patient any recent fever, denies any shortness of breath, difficulty breathing, cough, diaphoresis, nausea vomiting. Patient denies any open wound on her lower extremity, states that she had an ultrasound about one year ago at [facility], it had been resolving as she knows in her right lower extremity. She states over last week, the swelling in her right lower extremity has gotten a bit worse, she is elevating her legs multiple times each day, does not know why the swelling again otherwise. Related Data Home Medications Medication Instructions Recorded Confirmed biotin 5,000 mcg disintegrating 5,000 mcg PO DAILY 10/19/20 03/29/22 tablet cholecalciferol (vitamin D3) 50 50 mcg PO DAILY 10/19/20 03/29/22 mcg (2,000 unit) capsule fluticasone propionate 50 1 spray intranasal DAILY 10/19/20 03/29/22 mcg/actuation nasal spray,suspension loperamide 2 mg capsule (Imodium 2 mg PO Q4H PRN Diarrhea 10/19/20 03/29/22 A-D) omeprazole 20 mg capsule,delayed 20 mg PO DAILY 10/19/20 03/29/22 release echinacea See Rx Instructions PO DAILY 03/22/21 03/29/22 vedolizumab 300 mg intravenous 300 mg IV Q8W 03/22/21 03/29/22 solution (Entyvio) Previous Rx's Medication Instructions Recorded clobetasol 0.05 % topical ointment 1 applic topical DAILY #60 grams 07/13/21 apixaban 2.5 mg tablet (Eliquis) 2.5 mg PO BID DVT/PE #60 tabs 10/31/21 citalopram 40 mg tablet 40 mg PO DAILY #90 tabs 11/09/21 Allergies Allergy/AdvReac Type Severity Reaction Status Date / Time latex Allergy Severe yeast Verified 05/04/22 10:24 infection on skin hydromorphone [From Dilaudid] AdvReac Severe major Verified 05/04/22 10:24 hallucinations Review of Systems <ALICIA Slater - Last Filed: 05/04/22 16:35> Review of Systems Narrative: General: denies fever, chills Head/Neck: denies headache, neck pain Eyes: denies visual changes, eye pain Cardio: denies chest pain, palpitations Respiratory: denies shortness of breath, cough GI: denies abdominal pain, nausea, vomiting, or diarrhea : denies dysuria, hematuria or flank pain MSK: denies new joint pain, muscle weakness Skin: denies rash, itching or wound, endorses right lower extremity swelling without any new skin changes Neuro: denies numbness, tingling, dizziness Patient History <ALICIA Slater - Last Filed: 05/04/22 16:35> Medical History Anemia Anxiety Bilateral pulmonary embolism (~2019) DVT (deep venous thrombosis) (~2019) Infertility (~1977) Irregular menstrual cycle Left shoulder pain Osteopenia Ovarian cyst Ulcerative colitis (~1979) Surgical History Anesthesia History of carpal tunnel release History of colectomy (2002) History of hysterectomy History of surgery (~2002) Family History Father DVT (deep venous thrombosis) Social History household members: spouse Smoking Status: Never smoker alcohol intake: current substance use type: does not use Smoking Status: Never smoker alcohol intake frequency: holidays/special occasions only Alcohol type: wine Substance Use Type: does not use Exam <ALICIA Slater - Last Filed: 05/04/22 16:35> Narrative Exam Narrative: Independently reviewed vitals signs and nursing notes. General: cooperative, comfortable, in no acute distress, well groomed Head: atraumatic, symmetrical facial expressions Neck: supple Eyes: equal round and reactive, EOMI, conjunctiva normal Nose: nares patent, no rhinorrhea Mouth/Throat: moist mucus membranes Cardiovascular: regular rate and rhythm, S1-S2 without additional sounds warm extremities Respiratory: normal effort, able to speak in complete sentences, no audible wheezing, stridor, or rales. No retractions or tachypnea. GI: abdomen soft, nontender to palpation, nondistended, no masses, no exquisite tenderness with exam, without guarding or rebound. MSK: moves all extremities, neurovascularly intact, no weakness, normal tone, edema is present to her right lower extremity greater than her left lower extremity, no discoloration, erythema, or ecchymosis, no open wound. No tenderness to palpation of her calf, range of motion intact, neurovascularly intact. Skin: brisk capillary refill, no rash, no erythema Neuro: normal speech and cognition, A&O x3 Psych: mental status is grossly normal, congruent mood, normal affect, pleasant and cooperative Initial Vital Signs Initial Vital Signs: Vital Signs Temperature 97.7 F 05/04/22 10:23 Pulse Rate 74 05/04/22 10:23 Respiratory Rate 14 05/04/22 10:23 Blood Pressure 120/79 05/04/22 10:23 Pulse Oximetry 100 05/04/22 10:23 Oxygen Delivery Method 05/04/22 10:23 <Samy Menjivar DO - Last Filed: 05/04/22 16:44> Initial Vital Signs Initial Vital Signs: Vital Signs Temperature 97.7 F 05/04/22 10:23 Pulse Rate 74 05/04/22 10:23 Respiratory Rate 14 05/04/22 10:23 Blood Pressure 120/79 05/04/22 10:23 Pulse Oximetry 100 05/04/22 10:23 Oxygen Delivery Method 05/04/22 10:23 Course <ALICIA Slater - Last Filed: 05/04/22 16:35> Orders Ordered: ED Orders 05/04/22 10:33 US periph venous low extrem rt Stat Vital Signs Vital signs: Vital Signs - 8 hr 05/04/22 10:23 06/23/22 13:24 Temperature 97.7 F Pulse Rate 74 87 Respiratory Rate 14 Blood Pressure 120/79 134/73 Pulse Oximetry 100 100 Oxygen Delivery Method Room Air Room Air <Samy Menjivar DO - Last Filed: 05/04/22 16:44> Orders Ordered: ED Orders 05/04/22 10:33 US periph venous low extrem rt Stat Vital Signs Vital signs: Vital Signs - 8 hr 05/04/22 10:23 05/04/22 13:24 Temperature 97.7 F Pulse Rate 74 87 Respiratory Rate 14 Blood Pressure 120/79 134/73 Pulse Oximetry 100 100 Oxygen Delivery Method Room Air Room Air MDM - Extremity (Nontraumatic) <CESIA SlaterP - Last Filed: 05/04/22 16:35> Imaging Data US - DVT: Radiologist's Impression: PROCEDURE:? US PERIPH VENOUS LOW EXTREM RT ? INDICATIONS:? eval for DVT ? TECHNIQUE:? Real-time imaging, as well as color and pulse Doppler interrogation, were performed of the lower extremity deep veins from the inguinal ligament to the popliteal fossa.? ? COMPARISON:? [facility], , US VENOUS LOWER EXTREMITY DOPPLER BILATERAL, 03/31/2021, 7:57. ? FINDINGS:? The common femoral, femoral and popliteal veins are normally com pressible, and free of acute intraluminal thrombus.? Previously seen nonocclusive thrombus in the distal superficial femoral vein in the adductor canal extending into the right popliteal vein.? Color and pulse Doppler demonstrate normal phasic intraluminal flow.? There is normal augmentation response to distal compression maneuver.? ? IMPRESSION:? ? No sonographic evidence of acute DVT.? ? There is a small amount of chronic eccentric nonocclusive thrombus in the in the distal right superficial femoral vein in the adductor canal as well as the right popliteal vein is similar to the prior study.? ? Dictated by: Ron Cavazos M.D. on 05/04/2022 at 12:30 ? ? Approved by: Ron Cavazos M.D. on 05/04/2022 at 12:57 ? MDM Narrative Medical decision making narrative: This is a 66-year-old female presents to the emergency department for concern about a new DVT in her right lower extremity with history of DVT in her poplitea l vein of her right lower extremity and bilateral pulmonary emboli approximately one year ago. Patient has a history of Crohn's disease, she is on apixaban at reduced dosing due to GI bleeding. She has been followed by Dr. Avelar from Oncology who is managing her Eliquis dosing, Crohn's treatment and infusions of vedolizumab. They are aware that she has slowly had worsening anemia, today she does not have any pallor, lightheadedness, dizziness, or symptoms of bleeding. She denies any trauma, presented to the emergency department for concern about increased swelling, states that the swelling got better and she had a ultrasound of her DVT approximately one year ago at [facility]. Ultrasound of her right lower extremity today shows no sonographic evidence of acute DVT, there is a small amount of chronic eccentric nonocclusive thrombus in distal right superficial femoral vein in abductor canal as well as the right popliteal vein and is similar to the prior study. Patient is neurovascularly intact, PT and DP pulses are palpable, brisk cap refill, mild 1+ edema to her right lower extremity without skin changes. Patient understands to follow-up with her oncologist, resume and stay on her current medications as prescribed. She is encouraged to elevate her legs frequently, avoid having it pain dependent for long periods of time, wear compression stockings if this is helpful, and to return to the emergency department for any new or worsening symptoms. Patient is appropriate and amenable to discharge home. Vital signs are stable on repeat examination is unremarkable. Patient has been informed of results. Patient has been given strict return to ER precautions for any new or worsening symptoms. Patient understands to follow up closely with outpatient providers as instructed. Patient understands plan and agrees to discharge home. All questions and concerns answered at this time. Discharge Plan Departure Patient Disposition: Home Clinical Impression: Encounter for assessment for deep vein thrombosis (DVT) Instructions: DI for Deep Vein Thrombosis Activity Restrictions/Additional Instructions: *You have been diagnosed with residual chronic and nonocclusive thrombus in the right popliteal vein and right superficial femoral vein. These are not dangerous and your Eliquis dosing is adjusted for your Crohn's disease and anemia. Please follow-up with Dr. Lemon and Yung Lozoya about this. Please treat your swelling supportively using compression stockings, avoiding excess salt, having dependent lower extremities for much of the day, and elevate your leg frequently throughout the day. This should help, often times when the weather gets warm, edema comes out. Thank you for trusting us with your care, please do not make any changes to your medications, follow-up with your providers and come back to the emergency department if you have any new or worsening complaints. *What to do: *Please continue to take your regular medications as directed. [ ] New medication prescriptions sent to your pharmacy: [ ] [ ] New medication written as a paper prescription [x ] No new medications given *Please follow up with your primary care provider in 2-3 days, call for an appointment. Let them know you were seen in the Emergency Department and that we asked that you be seen for follow-up. We will electronically transmit a record of today's note if your PCP is in our system *If you do not have a primary care provider please contact [phone] to establish care with one of the [facility] primary care providers. *Return to Emergency Department if you should have any new, worsening or concerning symptoms, such as [fever greater than 101F, chills, worsening pain, persistent vomiting or other bothersome symptoms] Prescriptions: No Action clobetasol 0.05 % ointment 1 applic topical DAILY Qty: 60 3RF Rx Instructions: Apply to affected areas of vulvovaginal region citalopram 40 mg tablet 40 mg PO DAILY Qty: 90 3RF biotin 5,000 mcg tablet,disintegrating 5,000 mcg PO DAILY cholecalciferol (vitamin D3) 50 mcg (2,000 unit) capsule 50 mcg PO DAILY omeprazole 20 mg capsule,delayed release(DR/EC) 20 mg PO DAILY fluticasone propionate 50 mcg/actuation spray,suspension 1 spray intranasal DAILY Rx Instructions: administer into each nostril echinacea 760 mg See Rx Instructions PO DAILY Rx Instructions: PO daily; Entyvio 300 mg recon soln 300 mg IV Q8W Rx Instructions: administer over 30 mins loperamide [Imodium A-D] 2 mg Capsule 2 mg PO Q4H PRN (Reason: Diarrhea) Eliquis 2.5 mg Tablet 2.5 mg PO BID Qty: 60 11RF Referrals: Yung Lozoya ARNP [Primary Care Provider] - Farooq Avelar MD [Physician] - Visit Report Forms: Patient Portal/API <Samy Menjivar DO - Last Filed: 05/04/22 16:44> Cosign ED Attending Cosignature Attestation: Dr Menjivar Co-Sign Statement: I was available for consultation during this patient's emergency department visit. This chart is signed by myself for administrative purposes only. I did not have direct contact with this patient during this visit. They were seen independently by the APC.
[2022-05-04 13:24] VITALS: BP 134/73; PULSE 87; O2SAT 100
== END 2022-05-04 13:24 | disposition home or self-care (01) ==
PROVIDERS: Emergency Provider Nurse Practitioner Critical Care Medicine; PCP Registered Nurse Diabetes Educator; Referring Provider Internal Medicine Hematology & Oncology
DX: I82.501 Chronic embolism and thrombosis of unspecified deep veins of right lower extremity (principal); Z79.01 Long term (current) use of anticoagulants
CPT/HCPCS: 93971; 99283

== ENCOUNTER → 2022-05-16 14:35 | Outpatient (CLI) | payer MEDICARE, OTHER, SELFPAY ==
--- NOTE | 2022-05-16 14:37 | DI.MG.S_ITS ---
BILATERAL DIGITAL SCREENING MAMMOGRAM 3D/2D WITH CAD: 05/16/2022 CLINICAL: Routine screening. Comparison is made to exams dated: 05/10/2021 mammogram - [facility] and 04/28/2020 mammogram - [facility]. The tissue of both breasts is heterogeneously dense. This may lower the sensitivity of mammography. Current study was also evaluated with a Computer Aided Detection (CAD) system. There is a biopsy clip in the right breast. No significant masses, calcifications, or other findings are seen in either breast. There has been no significant interval change. IMPRESSION: NEGATIVE There is no mammographic evidence of malignancy. A 1 year screening mammogram is recommended. Based on the Tyrer Cuzick model (a risk assessment model) the patient's lifetime risk is 10.2% and her 10 year risk is 4.9%. According to the ACR, ACS, and NCCN guidelines, an annual breast MRI exam along with mammogram is recommended if the patient's lifetime risk is 20% or greater. This exam was interpreted at Station ID: [id number]. NOTE: For mammograms, a report in lay terms will be sent to the patient. Approximately 15% of breast malignancies will not be visualized mammographically. In the management of a palpable breast mass, a negative mammogram must not discourage biopsy of a clinically suspicious lesion. Electronically Signed By: Dashawn romeo/lewis:05/16/2022 18:05:10 letter sent: Normal Exam ACR BI-RADS Category 1: Negative 3341F
== END ==
PROVIDERS: PCP Registered Nurse Diabetes Educator; Referring Provider Registered Nurse Diabetes Educator; Visit Provider Registered Nurse Diabetes Educator
DX: Z12.31 Encounter for screening mammogram for malignant neoplasm of breast (principal)
CPT/HCPCS: 77063; 77067

== ENCOUNTER → 2022-07-04 16:46 | Outpatient (CLI) | payer MEDICARE, OTHER, SELFPAY ==
--- NOTE | 2022-07-04 16:50 | DI.RAD.S_ITS ---
PROCEDURE: XR WRIST LT MIN 3V INDICATIONS: left wrist pain TECHNIQUE: Four views of the wrist were acquired. COMPARISON: None. FINDINGS: Bones: Mild overall arthrosis of the carpal joints and 1st CMC joint. No displaced fracture identified. Overall normal alignment. Scaphoid view: Unremarkable Soft tissues: No suspicious soft tissue calcifications. IMPRESSION: No acute radiographic abnormality. Mild overall 1st CMC and carpal joint arthrosis. Consider MRI if there is further concern for internal derangement. Dictated by: Slava Vaughn M.D. on 07/05/2022 at 11:28 Approved by: Slava Vaughn M.D. on 07/05/2022 at 11:30
--- NOTE | 2022-07-04 16:50 | DI.RAD.S_ITS ---
PROCEDURE: XR LUMBAR SPINE MIN 4V INDICATIONS: lumbar spine left side with sciatica TECHNIQUE: 5 views of the lumbar spine acquired, including flexion and extension views. COMPARISON: None. FINDINGS: Bones: The lumbar spine demonstrates dextroscoliosis with apex angulation of 22 degrees to the right. No compression fracture is identified. No pars defects. Degenerative disc disease at L3-4. The facets of L4-5 and L5-S1 demonstrate facet arthrosis. Soft tissues: Overlying bowel gas pattern is normal. No suspicious soft tissue calcifications. Flexion/extension: There is normal range of motion, with preserved normal alignment. IMPRESSION: 1. Dextroscoliosis of the lumbar spine with right apex angulation of 22 degrees. 2. No acute abnormality. Dictated by: Willian Guevara M.D. on 07/05/2022 at 13:46 Approved by: Wlilian Guevara M.D. on 07/05/2022 at 13:51
== END ==
PROVIDERS: PCP Registered Nurse Diabetes Educator; Referring Provider Nurse Practitioner; Visit Provider Nurse Practitioner
DX: M18.12 Unilateral primary osteoarthritis of first carpometacarpal joint, left hand (principal); M41.86 Other forms of scoliosis, lumbar region; M25.532 Pain in left wrist; M54.50 Low back pain, unspecified
CPT/HCPCS: 72110; 73110

== ENCOUNTER → 2022-07-06 11:59 | Outpatient (CLI) | payer MEDICARE, OTHER, SELFPAY ==
[2022-07-06 12:44] LABS: Uric Acid 5.7 mg/dL (2.5-6.2)
== END ==
PROVIDERS: PCP Registered Nurse Diabetes Educator; Referring Provider Nurse Practitioner; Visit Provider Nurse Practitioner
DX: M25.50 Pain in unspecified joint (principal)
CPT/HCPCS: 36415; 84550

== ENCOUNTER → 2022-07-20 13:47 | Outpatient (CLI) | payer MEDICARE, OTHER, SELFPAY ==
--- NOTE | 2022-07-20 | DI.MRI.S_ITS ---
PROCEDURE: MR LUMBAR SPINE WO CON INDICATIONS: Spinal stenosis, lumbar region with neurogenic claudication TECHNIQUE: Noncontrast sagittal T1 spin echo and T2 fast echo, sagittal STIR, and T2 fast spin echo through the lumbar spine. In cases with scoliosis, additional coronal T2 fast spin echo may be performed. COMPARISON: None. FINDINGS: Image quality: Excellent. Alignment and Curvature: There is 4 millimeter anterolisthesis of L5 on S1. Bone Marrow: Marrow is of normal overall signal. No acute vertebral body compression fractures. Spinal Cord: Conus medullaris terminates at the T12-L1 level. Visualized cord demonstrates normal signal and size. Paraspinous Soft Tissues: No paravertebral masses. T12-L1: Normal appearance. L1-L2: Normal appearance. L2-L3: Loss of disc height and mild degenerative endplate changes are seen. Mild broad-based disc bulge and bilateral facet arthrosis is seen, no significant canal stenosis or neural foraminal narrowing. L3-L4: Near complete loss of disc height and disc signal is seen. Degenerative endplate changes also noted. There is broad-based disc bulge and bilateral facet arthrosis causing moderate central canal stenosis and right-sided neural foraminal narrowing. No significant left-sided neural foraminal narrowing. L4-L5: There is loss of disc height and disc signal. Broad-based disc bulge and bilateral facet arthrosis with hypertrophy of ligamentum flavum is seen causing moderate to severe central canal stenosis and bilateral neural foraminal narrowing. Bulging disc is likely contacting bilateral exiting L4 nerve roots. L5-S1: Loss of disc height and degenerative endplate changes are noted. Broad-based disc bulge and bilateral facet arthrosis is seen causing moderate central canal stenosis and right worse than left bilateral neural foraminal narrowing. IMPRESSION: 1. Degenerative disc disease at L2-3 through L5-S1 levels causing moderate to severe central canal stenosis and bilateral neural foraminal narrowing most prominent at L4-5 level as described above. 2. 4 mm anterolisthesis of L5 on S1. No marrow edema. No acute compression fracture. Dictated by: Brooks Gaines M.D. on 07/20/2022 at 17:23 Approved by: Brooks Gaines M.D. on 07/20/2022 at 17:26
--- NOTE | 2022-07-20 | DI.MRI.S_ITS ---
PROCEDURE: MR WRIST LT WO CON INDICATIONS: Pain in left wrist TECHNIQUE: Noncontrast coronal proton density fast spin echo and T2 fast spin echo with fat saturation; coronal 3-D gradient echo, axial T1 spin echo and T2 fast spin echo with fat saturation, sagittal T1 spin echo through the wrist. COMPARISON: None. FINDINGS: Image quality: Excellent. Bones and cartilage: Diffuse mild to moderate wrist joint osteoarthritic changes are seen with joint space narrowing and subchondral sclerosis. No fracture or dislocation. No suspicious intraosseous lesion. No evidence of osteonecrosis. Carpal ligaments: The scapholunate and lunotriquetral ligaments appear intact. In the absence of intra-articular contrast, the extrinsic carpal ligaments are not well identified. On sagittal images, the pisohamate ligament appears intact. Triangular fibrocartilage complex: Signal abnormality within medial periphery of triangular fibrocartilage near its ulnar insertion is seen concerning for focal perforation in this area. The adjacent meniscal homolog appears normal in the absence of intra-articular contrast. The extensor carpi ulnaris tendon is mildly thickened with intrasubstance T2 hyperintense signal at the level of ulnar styloid Tendons and soft tissues: The carpal tunnel structures appear normal, including the median nerve. The ulnar nerve appears normal within Guyon's canal. Thickened extensor pollicis brevis and abductor pollicis longus tendon at the level of radial styloid is seen with fluid distending tendon sheath and surrounding edema. Low-grade intrasubstance T2 hyperintense signal is also noted. 5 x 4 mm cystic structure over volar aspect of distal ulnar is seen. IMPRESSION: 1. 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 No fracture or dislocation. No evidence of osteonecrosis. 2. Scapholunate and lunotriquetral ligaments are intact. 3. Finding is concerning for focal TFCC tear near its radial insertion. 4. Tendinosis and low-grade intrasubstance partial-thickness tear involving extensor carpi ulnaris tendon at the level of ulnar styloid. 5. Tenosynovitis and low to moderate grade intrasubstance partial-thickness tear involving extensor pollicis low brevis and abductor pollicis longus tendons at the level of distal radius and radial styloid. 6. Suggestion of a 5 x 4 mm ganglion cyst over volar aspect of distal ulna. Dictated by: Brooks Gaines M.D. on 07/20/2022 at 15:54 Approved by: Brooks Gaines M.D. on 07/20/2022 at 16:01
== END ==
PROVIDERS: PCP Nurse Practitioner; Referring Provider Physical Medicine & Rehabilitation; Visit Provider Orthopaedic Surgery Foot and Ankle Surgery
DX: M48.062 Spinal stenosis, lumbar region with neurogenic claudication (principal); M25.532 Pain in left wrist; M19.032 Primary osteoarthritis, left wrist; M65.832 Other synovitis and tenosynovitis, left forearm; S66.812A Strain of other specified muscles, fascia and tendons at wrist and hand level, left hand, initial encounter; M43.16 Spondylolisthesis, lumbar region
CPT/HCPCS: 72148; 73221

== ENCOUNTER → 2022-11-07 10:59 | Outpatient (CLI) | payer MEDICARE, OTHER, SELFPAY ==
[2022-11-07 11:36] LABS: Add Manual Diff / Slide Review NO; Basophils Absolute Auto 0 /uL (0-100); Basophils Percent Auto 0.9 % (0-2); Eosinophils Absolute Auto 0 /uL (0-450); Eosinophils Percent Auto 0.8 % (2-4); Hematocrit 25.7 % (36-46); Hemoglobin 8.3 g/dL (12.0-16.0); Lymphocytes Absolute Auto 1000 /uL (1100-4500); Lymphocytes Percent Auto 22.4 % (25-40); Mean Corpuscular HGB Conc 32.3 % (30-36); Mean Corpuscular Volume 86.9 fL (80-100); Monocytes Absolute Auto 600 /uL (0-900); Neutrophils Absolute Auto 2800 /uL (1500-7000); Neutrophils Percent Auto 62.9 % (50-75); Platelet Count 293 X10^3/uL (150-400); Red Blood Cell Count 2.96 X10^6/uL (4.0-5.2); Red Cell Distribution Width 15.6 % (11.6-14.8); White Blood Cell Count 4.5 X10^3/uL (4.5-11.0)
[2022-11-07 11:53] LABS: HEMOLYSIS < 15 (0-50); Iron 19 ug/dL (37-170)
[2022-11-07 11:54] LABS: Alanine Aminotransferase 41 IU/L (<35); Albumin 3.9 g/dL (3.5-5.0); Albumin Globulin Ratio 1.4 (1.0-2.8); Alkaline Phosphatase 73 U/L (38-126); Aspartate Aminotransferase 43 IU/L (14-36); BUN Creatinine Ratio 19.5 (6-22); Bilirubin Total 0.2 mg/dL (0.2-1.3); Blood Urea Nitrogen 15 mg/dL (7-17); C-Reactive Protein Quant 1.6 mg/dL (<1.0); Calcium 8.6 mg/dL (8.4-10.2); Carbon Dioxide 24 mmol/L (22-32); Chloride 102 mmol/L (98-107); Estimated Glomerular Filt Rate > 60 mL/min (>60); Globulin 2.8 g/dL (1.7-4.1); Glucose 100 mg/dL (80-110); HEMOLYSIS < 15 (0-50); Potassium 3.7 mmol/L (3.4-5.1); Sodium 136 mmol/L (137-145); Total Protein 6.7 g/dL (6.3-8.2)
[2022-11-07 12:05] LABS: Percent Iron Saturation 5 % (15-50); Total Iron Binding Capacity 395 ug/dL (265-497); Transferrin 315 mg/dL (206-381)
[2022-11-07 12:27] LABS: Ferritin 11 ng/mL (11-264)
== END ==
PROVIDERS: Internal Medicine Hematology & Oncology; PCP Nurse Practitioner; Referring Provider Internal Medicine Gastroenterology; Visit Provider Internal Medicine Gastroenterology
DX: K50.00 Crohn's disease of small intestine without complications (principal); K51.90 Ulcerative colitis, unspecified, without complications; D50.9 Iron deficiency anemia, unspecified; D64.9 Anemia, unspecified
CPT/HCPCS: 36415; 80053; 82728; 83540; 83550; 85025; 86140

== ENCOUNTER → 2023-01-02 11:05 | Outpatient (CLI) | payer MEDICARE, OTHER, SELFPAY ==
[2023-01-02 12:34] LABS: Add Manual Diff / Slide Review NO; Basophils Absolute Auto 0 /uL (0-100); Basophils Percent Auto 0.8 % (0-2); Eosinophils Absolute Auto 0 /uL (0-450); Eosinophils Percent Auto 0.7 % (2-4); Hematocrit 25.5 % (36-46); Hemoglobin 8.1 g/dL (12.0-16.0); Lymphocytes Absolute Auto 900 /uL (1100-4500); Lymphocytes Percent Auto 18.9 % (25-40); Mean Corpuscular HGB Conc 31.7 % (30-36); Mean Corpuscular Hemoglobin 26.8 PG (26-34); Mean Corpuscular Volume 84.6 fL (80-100); Monocytes Absolute Auto 400 /uL (0-900); Neutrophils Absolute Auto 3500 /uL (1500-7000); Neutrophils Percent Auto 70.6 % (50-75); Platelet Count 347 X10^3/uL (150-400); Red Blood Cell Count 3.02 X10^6/uL (4.0-5.2); Red Cell Distribution Width 17.3 % (11.6-14.8)
[2023-01-02 13:18] LABS: Alanine Aminotransferase 26 IU/L (<35); Albumin Globulin Ratio 1.5 (1.0-2.8); Alkaline Phosphatase 71 U/L (38-126); Aspartate Aminotransferase 32 IU/L (14-36); BUN Creatinine Ratio 19.3 (6-22); Bilirubin Total 0.2 mg/dL (0.2-1.3); Blood Urea Nitrogen 16 mg/dL (7-17); C-Reactive Protein Quant < 0.5 mg/dL (<1.0); Calcium 8.7 mg/dL (8.4-10.2); Carbon Dioxide 23 mmol/L (22-32); Chloride 105 mmol/L (98-107); Estimated Glomerular Filt Rate > 60 mL/min (>60); Globulin 2.6 g/dL (1.7-4.1); Glucose 90 mg/dL (80-110); HEMOLYSIS < 15 (0-50); Potassium 4.2 mmol/L (3.4-5.1); Sodium 138 mmol/L (137-145); Total Protein 6.6 g/dL (6.3-8.2)
== END ==
PROVIDERS: PCP Nurse Practitioner; Referring Provider Internal Medicine Gastroenterology; Visit Provider Internal Medicine Gastroenterology
DX: K50.00 Crohn's disease of small intestine without complications (principal)
CPT/HCPCS: 36415; 80053; 85025; 86140

== ENCOUNTER → 2023-01-30 13:58 | Outpatient (CLI) | payer MEDICARE, OTHER, SELFPAY ==
[2023-01-30 14:39] LABS: Add Manual Diff / Slide Review NO; Basophils Absolute Auto 100 /uL (0-100); Basophils Percent Auto 1.1 % (0-2); Eosinophils Absolute Auto 100 /uL (0-450); Eosinophils Percent Auto 1.5 % (2-4); Hemoglobin 9.3 g/dL (12.0-16.0); Lymphocytes Absolute Auto 1300 /uL (1100-4500); Lymphocytes Percent Auto 18.8 % (25-40); Mean Corpuscular HGB Conc 30.9 % (30-36); Mean Corpuscular Hemoglobin 28.1 PG (26-34); Monocytes Absolute Auto 600 /uL (0-900); Monocytes Percent Auto 8.4 % (3-14); Neutrophils Absolute Auto 4800 /uL (1500-7000); Neutrophils Percent Auto 70.2 % (50-75); Platelet Count 297 X10^3/uL (150-400); Red Cell Distribution Width 30.7 % (11.6-14.8); White Blood Cell Count 6.9 X10^3/uL (4.5-11.0)
[2023-01-30 14:57] LABS: Alanine Aminotransferase 26 IU/L (<35); Albumin Globulin Ratio 1.7 (1.0-2.8); Alkaline Phosphatase 69 U/L (38-126); Aspartate Aminotransferase 31 IU/L (14-36); BUN Creatinine Ratio 15.7 (6-22); Bilirubin Total 0.3 mg/dL (0.2-1.3); Blood Urea Nitrogen 14 mg/dL (7-17); C-Reactive Protein Quant 0.6 mg/dL (<1.0); Calcium 8.6 mg/dL (8.4-10.2); Carbon Dioxide 21 mmol/L (22-32); Chloride 107 mmol/L (98-107); Estimated Glomerular Filt Rate > 60 mL/min (>60); Globulin 2.4 g/dL (1.7-4.1); Glucose 95 mg/dL (80-110); HEMOLYSIS < 15 (0-50); Potassium 4.2 mmol/L (3.4-5.1); Sodium 138 mmol/L (137-145); Total Protein 6.4 g/dL (6.3-8.2)
[2023-01-30 15:04] LABS: Dimorphic RBC PRESENT; Macrocytosis 1+; Polychromasia 1+
[2023-01-30 15:05] LABS: Hypochromasia 1+
[2023-01-30 15:08] LABS: Microcytosis 1+
== END ==
PROVIDERS: PCP Nurse Practitioner; Referring Provider Internal Medicine Gastroenterology; Visit Provider Internal Medicine Gastroenterology
DX: K50.00 Crohn's disease of small intestine without complications (principal)
CPT/HCPCS: 36415; 80053; 85025; 86140

== ENCOUNTER → 2023-05-09 11:48 | Outpatient (CLI) | payer MEDICARE, OTHER, SELFPAY ==
[2023-05-09 12:39] LABS: HEMOLYSIS < 15 (0-50); Iron 18 ug/dL (37-170)
[2023-05-09 12:50] LABS: Percent Iron Saturation 4 % (15-50); Total Iron Binding Capacity 451 ug/dL (265-497); Transferrin 340 mg/dL (206-381)
[2023-05-09 13:18] LABS: Ferritin 7 ng/mL (11-264)
[2023-05-09 18:18] LABS: Hepatitis B Surface Antigen NEGATIVE s/c (NEGATIVE)
[2023-05-10 04:36] LABS: Hepatitis B Core Antibody Negative (Negative)
[2023-05-11 03:48] LABS: Hepatitis B Surf Ab Qualitativ Non Reactive (.)
[2023-05-11 13:10] LABS: QuantiFERON Mitogen Value >10.00 IU/mL (.); QuantiFERON Nil Value 0.01 IU/mL (.); QuantiFERON TB Gold Plus Negative (Negative); QuantiFERON TB1 Ag Value 0.03 IU/mL (.); QuantiFERON TB2 Ag Value 0.03 IU/mL (.)
== END ==
PROVIDERS: Internal Medicine Hematology & Oncology; PCP Nurse Practitioner; Referring Provider Internal Medicine Gastroenterology; Visit Provider Internal Medicine Gastroenterology
DX: K50.00 Crohn's disease of small intestine without complications (principal); Z79.01 Long term (current) use of anticoagulants; Z90.49 Acquired absence of other specified parts of digestive tract; D50.9 Iron deficiency anemia, unspecified; I26.99 Other pulmonary embolism without acute cor pulmonale
CPT/HCPCS: 36415; 82728; 83540; 83550; 86480; 86704; 86706; 87340

== ENCOUNTER → 2023-06-07 09:56 | Outpatient (CLI) | payer MEDICARE, OTHER, SELFPAY ==
--- NOTE | 2023-06-07 | DI.MG.S_ITS ---
BILATERAL DIGITAL SCREENING MAMMOGRAM 3D/2D WITH CAD: 06/07/2023 CLINICAL: Routine screening. Comparison is made to exams dated: 05/16/2022 mammogram, 05/10/2021 mammogram - [facility], 04/28/2020 mammogram, and 03/05/2019 mammogram - [facility]. Both breasts are heterogeneously dense, which may obscure small masses (category c / 51-75% glandular tissue). Current study was also evaluated with a Computer Aided Detection (CAD) system. There is a biopsy clip in the right breast. No significant masses, calcifications, or other findings are seen in either breast. There has been no significant interval change. IMPRESSION: NEGATIVE There is no mammographic evidence of malignancy. A 1 year screening mammogram is recommended. Based on the Tyrer Cuzick model (a risk assessment model) the patient's lifetime risk is 9.7% and her 10 year risk is 4.9%. According to the ACR, ACS, and NCCN guidelines, an annual breast MRI exam along with mammogram is recommended if the patient's lifetime risk is 20% or greater. This exam was interpreted at Station ID: [id number]. NOTE: For mammograms, a report in lay terms will be sent to the patient. Approximately 15% of breast malignancies will not be visualized mammographically. In the management of a palpable breast mass, a negative mammogram must not discourage biopsy of a clinically suspicious lesion. Electronically Signed By: Dashawn romeo/lewis:06/07/2023 15:55:35 letter sent: Normal Exam ACR BI-RADS Category 1: Negative 3341F
== END ==
PROVIDERS: PCP Nurse Practitioner; Referring Provider Nurse Practitioner; Visit Provider Nurse Practitioner
DX: Z12.31 Encounter for screening mammogram for malignant neoplasm of breast (principal)
CPT/HCPCS: 77063; 77067

== ENCOUNTER → 2023-07-23 14:45 | Outpatient (CLI) | payer MEDICARE, OTHER, SELFPAY ==
[2023-07-23 14:58] LABS: Add Manual Diff / Slide Review NO; Basophils Absolute Auto 0 /uL (0-100); Basophils Percent Auto 0.6 % (0-2); Eosinophils Absolute Auto 100 /uL (0-450); Hematocrit 23.9 % (36-46); Hemoglobin 7.6 g/dL (12.0-16.0); Lymphocytes Absolute Auto 1600 /uL (1100-4500); Lymphocytes Percent Auto 19.2 % (25-40); Mean Corpuscular HGB Conc 31.8 % (30-36); Mean Corpuscular Hemoglobin 25.1 PG (26-34); Mean Corpuscular Volume 79.2 fL (80-100); Monocytes Absolute Auto 800 /uL (0-900); Monocytes Percent Auto 9.6 % (3-14); Neutrophils Absolute Auto 5600 /uL (1500-7000); Neutrophils Percent Auto 69.6 % (50-75); Platelet Count 293 X10^3/uL (150-400); Red Blood Cell Count 3.02 X10^6/uL (4.0-5.2); White Blood Cell Count 8.1 X10^3/uL (4.5-11.0)
[2023-07-23 15:10] LABS: Alanine Aminotransferase 28 IU/L (<35); Albumin Globulin Ratio 1.5 (1.0-2.8); Alkaline Phosphatase 54 U/L (38-126); Aspartate Aminotransferase 27 IU/L (14-36); BUN Creatinine Ratio 25.3 (6-22); Bilirubin Total 0.2 mg/dL (0.2-1.3); Blood Urea Nitrogen 24 mg/dL (7-17); Calcium 8.8 mg/dL (8.4-10.2); Carbon Dioxide 19 mmol/L (22-32); Chloride 110 mmol/L (98-107); Estimated Glomerular Filt Rate > 60 mL/min (>60); Globulin 2.6 g/dL (1.7-4.1); Glucose 102 mg/dL (80-110); HEMOLYSIS < 15 (0-50); Potassium 3.8 mmol/L (3.4-5.1); Sodium 137 mmol/L (137-145); Total Protein 6.6 g/dL (6.3-8.2)
[2023-07-23 15:12] LABS: HEMOLYSIS < 15 (0-50); Iron 20 ug/dL (37-170)
[2023-07-23 15:23] LABS: Percent Iron Saturation 4 % (15-50); Total Iron Binding Capacity 453 ug/dL (265-497); Transferrin 364 mg/dL (206-381)
[2023-07-23 15:44] LABS: Ferritin 8 ng/mL (11-264)
[2023-07-23 16:07] LABS: Hypochromasia 1+; Microcytosis 1+
[2023-07-23 16:08] LABS: Polychromasia 1+
== END ==
PROVIDERS: PCP Nurse Practitioner; Referring Provider Nurse Practitioner; Visit Provider Nurse Practitioner
DX: D50.9 Iron deficiency anemia, unspecified (principal); D50.8 Other iron deficiency anemias
CPT/HCPCS: 36415; 80053; 82728; 83540; 83550; 85025

== ENCOUNTER → 2024-03-13 11:27 | Outpatient (CLI) | payer MEDICARE, OTHER, SELFPAY ==
--- NOTE | 2024-03-13 11:31 | DI.RAD.S_ITS ---
PROCEDURE: XR DEXA AXIAL SKELETON INDICATIONS: post menopausal osteoporosis COMPARISON: [facility], CR, XR DEXA AXIAL SKELETON, 05/10/2021, 11:02. FINDINGS: Lumbar Spine: Bone mineral density 0.931 g/cm2, T score -1.1, dissimilar scan type does not allow for statistical comparison. Left Hip: Bone mineral density 0.763 g/cm2, T score -1.5, dissimilar scan type does not allow for statistical comparison. Left Femoral Neck: Bone mineral density 0.684 g/cm2, T score -1.5, osteopenia. Right Hip: Bone mineral density 0.7-8 g/cm2, T score -1.8, dissimilar scan types. Right Femoral Neck: Bone mineral density 0.626 g/cm2, T score -2.0, osteopenia. Fracture Risk Calculation (when applicable): 10-year fracture risk of a major osteoporotic fracture 11 percent and of a hip fracture 1.8 percent. (T score greater or equal to -1.0 to: NORMAL) (T score from -1.1 to -2.4: OSTEOPENIA) (T score less than or equal to -2.5: OSTEOPOROSIS) IMPRESSION: Osteopenia. Follow-up guidelines as follows: Osteoporosis: Consider a repeat DEXA and Vertebral Fracture Assessment (VFA) exam in 2 years or sooner if medically necessary, to reassess this patient's status. Osteopenia: Consider a repeat DEXA in 2-3 years to reassess this patient's status, or if there is a new clinical indication. Normal: Consider a repeat DEXA in 5 years or sooner, or if there is a new clinical indication. Dictated by: Gee Cullen M.D. on 03/13/2024 at 15:17 Approved by: Gee Cullen M.D. on 03/13/2024 at 15:19
== END ==
PROVIDERS: PCP Nurse Practitioner; Referring Provider Nurse Practitioner; Visit Provider Nurse Practitioner
DX: M81.0 Age-related osteoporosis without current pathological fracture (principal)
CPT/HCPCS: 77080

== ENCOUNTER → 2024-05-07 14:36 | Outpatient (CLI) | payer MEDICARE, OTHER, SELFPAY ==
[2024-05-07 15:06] LABS: Add Manual Diff / Slide Review NO; Basophils Absolute Auto 0 /uL (0-100); Basophils Percent Auto 0.4 % (0-2); Eosinophils Absolute Auto 0 /uL (0-450); Eosinophils Percent Auto 0.1 % (2-4); Hematocrit 32.7 % (36-46); Hemoglobin 11.1 g/dL (12.0-16.0); Lymphocytes Absolute Auto 1100 /uL (1100-4500); Lymphocytes Percent Auto 14.2 % (25-40); Mean Corpuscular Hemoglobin 33.7 PG (26-34); Monocytes Absolute Auto 600 /uL (0-900); Monocytes Percent Auto 8.2 % (3-14); Neutrophils Absolute Auto 5800 /uL (1500-7000); Neutrophils Percent Auto 77.1 % (50-75); Platelet Count 285 X10^3/uL (150-400); Red Cell Distribution Width 13.7 % (11.6-14.8); White Blood Cell Count 7.6 X10^3/uL (4.5-11.0)
[2024-05-07 15:51] LABS: Iron 56 ug/dL (37-170)
[2024-05-07 15:52] LABS: Alanine Aminotransferase 24 IU/L (<35); Albumin 4.3 g/dL (3.5-5.0); Albumin Globulin Ratio 1.7 (1.0-2.8); Alkaline Phosphatase 61 U/L (38-126); Aspartate Aminotransferase 40 IU/L (14-36); Bilirubin Total 0.5 mg/dL (0.2-1.3); Blood Urea Nitrogen 15 mg/dL (7-17); Carbon Dioxide 21 mmol/L (22-32); Chloride 109 mmol/L (98-107); Estimated Glomerular Filt Rate 52 mL/min (>60); Globulin 2.6 g/dL (1.7-4.1); Glucose 95 mg/dL (80-110); HEMOLYSIS < 15 (0-50); Potassium 3.8 mmol/L (3.4-5.1); Sodium 140 mmol/L (137-145); Total Protein 6.9 g/dL (6.3-8.2)
[2024-05-07 16:04] LABS: Total Iron Binding Capacity 322 ug/dL (265-497)
== END ==
PROVIDERS: PCP Nurse Practitioner; Referring Provider Internal Medicine Hematology & Oncology; Visit Provider Internal Medicine Hematology & Oncology
DX: D50.0 Iron deficiency anemia secondary to blood loss (chronic) (principal)
CPT/HCPCS: 36415; 80053; 83540; 83550; 85025

== ENCOUNTER → 2024-05-09 11:42 | Outpatient (CLI) | payer MEDICARE, OTHER, SELFPAY ==
[2024-05-09 12:36] LABS: HEMOLYSIS < 15 (0-50); Iron 55 ug/dL (37-170)
[2024-05-09 13:06] LABS: Ferritin 27 ng/mL (11-264)
[2024-05-09 13:42] LABS: Percent Iron Saturation 17 % (15-50); Total Iron Binding Capacity 327 ug/dL (265-497); Transferrin 275 mg/dL (206-381)
== END ==
PROVIDERS: PCP Nurse Practitioner; Referring Provider Internal Medicine Hematology & Oncology; Visit Provider Internal Medicine Hematology & Oncology
DX: D50.0 Iron deficiency anemia secondary to blood loss (chronic) (principal)
CPT/HCPCS: 36415; 82728; 83540; 83550

== ENCOUNTER → 2024-06-24 10:01 | Outpatient (CLI) | payer MEDICARE, OTHER, SELFPAY ==
--- NOTE | 2024-06-24 10:03 | DI.MG.S_ITS ---
BILATERAL DIGITAL SCREENING MAMMOGRAM 3D/2D WITH CAD: 06/24/2024 CLINICAL: Routine screening. Comparison is made to exams dated: 06/07/2023 mammogram, 05/16/2022 mammogram, and 05/10/2021 mammogram - [facility]. Both breasts are heterogeneously dense, which may obscure small masses (category c / 51-75% glandular tissue). Current study was also evaluated with a Computer Aided Detection (CAD) system. There is a biopsy clip in the right breast. No significant masses, calcifications, or other findings are seen in either breast. There has been no significant interval change. IMPRESSION: BENIGN There is no mammographic evidence of malignancy. A 1 year screening mammogram is recommended. Based on the Tyrer Cuzick model (a risk assessment model) the patient's lifetime risk is 9.2% and her 10 year risk is 4.9%. According to the ACR, ACS, and NCCN guidelines, an annual breast MRI exam along with mammogram is recommended if the patient's lifetime risk is 20% or greater. This exam was interpreted at Station ID: [id number]. NOTE: For mammograms, a report in lay terms will be sent to the patient. Approximately 15% of breast malignancies will not be visualized mammographically. In the management of a palpable breast mass, a negative mammogram must not discourage biopsy of a clinically suspicious lesion. Electronically Signed By: Linda Mejia M.D., Ph.D. [email or web address]/[email or web address]:06/24/2024 15:59:50 letter sent: Normal Exam ACR BI-RADS Category 2: Benign Finding(s) [id number]
== END ==
PROVIDERS: PCP Nurse Practitioner; Referring Provider Nurse Practitioner; Visit Provider Nurse Practitioner
DX: Z12.31 Encounter for screening mammogram for malignant neoplasm of breast (principal); R92.333 Mammographic heterogeneous density, bilateral breasts
CPT/HCPCS: 77063; 77067

== ENCOUNTER → 2024-12-14 13:07 | Outpatient (CLI) | payer MEDICARE, OTHER, SELFPAY ==
--- NOTE | 2024-12-14 13:10 | DI.RAD.S_ITS ---
PROCEDURE: XR CHEST 2V INDICATIONS: Cough TECHNIQUE: 2 views of the chest were acquired. COMPARISON: [facility], CR, XR CHEST 2V, 03/22/2021, 13:35. [facility], CR, XR CHEST 1V, 11/23/2020, 14:22. FINDINGS: Surgical changes and devices: None. Lungs and pleura: Lungs are clear. No pleural effusions or pneumothorax. Mediastinum: Mediastinal contours are normal. Heart size is normal. Bones and chest wall: No suspicious bony abnormalities. Soft tissues appear unremarkable. IMPRESSION: No acute cardiopulmonary abnormality is seen. Dictated by: Dashawn Kim M.D. on 12/14/2024 at 17:09 Approved by: Dashawn Kim M.D. on 12/14/2024 at 17:10
== END ==
LOC: RAD 13:08
PROVIDERS: PCP Nurse Practitioner Family; Referring Provider Nurse Practitioner Family; Visit Provider Nurse Practitioner Family
DX: R05.9 Cough, unspecified (principal)
CPT/HCPCS: 71046

== ENCOUNTER → 2025-03-17 11:18 | Outpatient (CLI) | payer MEDICARE, OTHER, SELFPAY ==
[2025-03-17 12:13] LABS: Add Manual Diff / Slide Review NO; Basophils Absolute Auto 0 /uL (0-100); Basophils Percent Auto 0.5 % (0-2); Eosinophils Absolute Auto 0 /uL (0-450); Eosinophils Percent Auto 0.4 % (2-4); Hematocrit 28.1 % (36-46); Hemoglobin 9.4 g/dL (12.0-16.0); Lymphocytes Absolute Auto 1100 /uL (1100-4500); Lymphocytes Percent Auto 20.9 % (25-40); Mean Corpuscular HGB Conc 33.4 % (30-36); Mean Corpuscular Hemoglobin 31.1 PG (26-34); Monocytes Absolute Auto 500 /uL (0-900); Monocytes Percent Auto 10.6 % (3-14); Neutrophils Absolute Auto 3400 /uL (1500-7000); Neutrophils Percent Auto 67.6 % (50-75); Platelet Count 298 X10^3/uL (150-400); Red Blood Cell Count 3.03 X10^6/uL (4.0-5.2); Red Cell Distribution Width 14.5 % (11.6-14.8); White Blood Cell Count 5.1 X10^3/uL (4.5-11.0)
[2025-03-17 12:44] LABS: Alanine Aminotransferase 25 IU/L (<35); Albumin 4.2 g/dL (3.5-5.0); Albumin Globulin Ratio 1.6 (1.0-2.8); Alkaline Phosphatase 56 U/L (38-126); Aspartate Aminotransferase 37 IU/L (14-36); BUN Creatinine Ratio 14.6 (6-22); Bilirubin Total 0.5 mg/dL (0.2-1.3); Blood Urea Nitrogen 13 mg/dL (7-17); Calcium 9.4 mg/dL (8.4-10.2); Carbon Dioxide 22 mmol/L (22-32); Chloride 106 mmol/L (98-107); Estimated Glomerular Filt Rate > 60 mL/min (>60); Globulin 2.7 g/dL (1.7-4.1); Glucose 93 mg/dL (70-99); HEMOLYSIS < 15 (0-50); Potassium 4.5 mmol/L (3.4-5.1); Sodium 135 mmol/L (137-145); Total Protein 6.9 g/dL (6.3-8.2)
[2025-03-17 12:51] LABS: HEMOLYSIS < 15 (0-50); Iron 68 ug/dL (37-170)
[2025-03-17 13:02] LABS: Percent Iron Saturation 19 % (15-50); Total Iron Binding Capacity 359 ug/dL (265-497); Transferrin 311 mg/dL (206-381)
[2025-03-17 13:19] LABS: Ferritin 7 ng/mL (11-264)
== END ==
LOC: LAB 11:19
PROVIDERS: PCP Nurse Practitioner Family; Referring Provider Nurse Practitioner Gerontology; Visit Provider Nurse Practitioner Gerontology
DX: D50.0 Iron deficiency anemia secondary to blood loss (chronic) (principal)
CPT/HCPCS: 36415; 80053; 82728; 83540; 83550; 85025

== ENCOUNTER → 2025-06-14 10:34 | Outpatient (CLI) | payer MEDICARE, OTHER, SELFPAY ==
--- NOTE | 2025-06-14 10:36 | DI.MRI.S_ITS ---
PROCEDURE: MR ELBOW RT WO CON INDICATIONS: MEDIAL EPICONDYLITIS, RT ELBOW TECHNIQUE: Noncontrast coronal proton density fast spin echo and T2 fast spin echo with fat saturation, axial and sagittal T1 spin echo and T2 fast spin echo with fat saturation through the elbow. COMPARISON: None. FINDINGS: Image quality: Excellent. Lateral structures: The lateral ulnar collateral ligament and radial collateral ligament both appear intact. The overlying common extensor tendon appears thickened at its lateral epicondylar insertion. Medial structures: The ulnar collateral ligament appears thickened with intrasubstance T2 hyperintense signal at its medial epicondylar insertion.. The overlying common flexor tendon also appears thickened with intrasubstance T2 hyperintense signal. The ulnar nerve appears enlarged in size with T2 hyperintense signal within the cubital tunnel. Anterior structures: Distal biceps tendinosis at its proximal radial insertion is seen. Distal brachialis tendon is intact. No bicipitoradial bursal fluid. The median and radial neurovascular bundles appear normal; no focal muscle atrophy to suggest nerve impingement. Posterior structures: Distal triceps tendinosis at its proximal olecranon insertion is seen. No olecranon bursal fluid. Bone and cartilage: Mild marrow edema involving proximal radius near biceps insertion is seen. No discrete fracture or dislocation. No other area of abnormal marrow signal. No intra-articular loose bodies. No osteochondral injuries. IMPRESSION: 1. Moderate grade medial epicondylitis with low to moderate grade partial- thickness tear involving common flexor tendon origin and low to moderate grade intrasubstance partial-thickness tear involving proximal ulnar collateral ligament. Edema is noted within ulnar nerve within the cubital tunnel concerning for neuritis. 2. Mild tendinosis involving common extensor tendon origin at lateral epicondyle. 3. Distal biceps tendinosis at its proximal radial insertion. Distal triceps tendinosis at its proximal olecranon insertion. No full-thickness tendon rupture. 4. Suggestion of contusion involving proximal radius. No fracture or dislocation. Small joint effusion, no loose bodies. Dictated by: Brooks Gaines M.D. on 06/15/2025 at 11:18 Approved by: Brooks Gaines M.D. on 06/15/2025 at 11:42
== END ==
LOC: MRI 10:35
PROVIDERS: PCP Nurse Practitioner Family; Referring Provider Nurse Practitioner Family; Visit Provider Orthopaedic Surgery
DX: M77.01 Medial epicondylitis, right elbow (principal); S56.211A Strain of other flexor muscle, fascia and tendon at forearm level, right arm, initial encounter; S53.441A Ulnar collateral ligament sprain of right elbow, initial encounter; M25.421 Effusion, right elbow
CPT/HCPCS: 73221

== ENCOUNTER → 2025-07-29 08:53 | Outpatient (CLI) | payer MEDICARE, OTHER, SELFPAY ==
--- NOTE | 2025-07-29 08:55 | DI.CT.S_ITS ---
PROCEDURE: CT ABDOMEN PELVIS W CON INDICATIONS: PAIN/HIGH FERRITIN TECHNIQUE: After the administration of intravenous contrast, axial sections acquired from the lung bases to the pubic symphysis. Coronal and sagittal reformats were performed. For radiation dose reduction, the following was used: automated exposure control, adjustment of mA and/or kV according to patient size. COMPARISON: None. FINDINGS: Image quality: Diagnostic Lower chest: Right middle lobe atelectasis/scarring. Small fat containing Bochdalek's hernias. Liver: Tiny hypoattenuating liver lesions, too small to characterize, usually cysts Gallbladder and biliary system: Cholelithiasis, nondilated Pancreas: No ductal dilation Spleen: Nonenlarged Adrenals: No discrete nodules Kidneys: No solid renal mass. No hydronephrosis. Vessels and lymph nodes: The main portal vein is patent. No abdominal aortic aneurysm no lymph nodes enlarged by size criteria. Bowel and peritoneum: No bowel obstruction. Upper rectal suture lines and ileal anastomosis. There is wall thickening throughout the region around the suture lines extending into the rectum Prominent surrounding lymph nodes are present, for example measuring 1 cm in short axis image Body wall: Unremarkable Pelvis: Under distended. Uterus is absent. Bones: There are degenerative osseous changes. Rightward lumbar spinal curvature. IMPRESSION: Ileorectal anastomosis. Moderate wall thickening and edema seen around the suture lines, extending into the rectum. Surrounding borderline enlarged lymph nodes are present, possibly reactive Consider direct visualization. No bowel obstruction. No abscess. Small hypoattenuating liver lesions are present, nonspecific and too small to characterize by CT, probably cysts. Non cirrhotic liver contour. Given provided history of high ferritin, abdominal MRI may be obtained to further evaluate hemosiderosis. Other findings above. Dictated by: Slava Vaughn M.D. on 07/29/2025 at 11:25 Approved by: Slava Vaughn M.D. on 07/29/2025 at 11:33
== END ==
PROVIDERS: PCP Nurse Practitioner Family; Referring Provider Nurse Practitioner Family; Visit Provider Nurse Practitioner Family
DX: K50.918 Crohn's disease, unspecified, with other complication (principal); K51.918 Ulcerative colitis, unspecified with other complication; K80.20 Calculus of gallbladder without cholecystitis without obstruction; K44.9 Diaphragmatic hernia without obstruction or gangrene; K76.9 Liver disease, unspecified; R74.01 Elevation of levels of liver transaminase levels; E83.10 Disorder of iron metabolism, unspecified; D53.1 Other megaloblastic anemias, not elsewhere classified; Z79.620 Long term (current) use of immunosuppressive biologic; Z90.49 Acquired absence of other specified parts of digestive tract; Z98.0 Intestinal bypass and anastomosis status
CPT/HCPCS: 74177; Q9967

== ENCOUNTER → 2025-07-31 15:47 | Outpatient (CLI) | payer MEDICARE, OTHER, SELFPAY ==
--- NOTE | 2025-07-31 15:49 | DI.RAD.S_ITS ---
PROCEDURE: XR HIP W PEL IF DONE RT 2V INDICATIONS: rt hip pain TECHNIQUE: AP pelvis with lateral view(s) of the right hip(s). COMPARISON: None. FINDINGS: Bones: No fractures or dislocations. 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 Pelvic ring appears intact. No suspicious bony lesions. Soft tissues: The visualized bowel gas pattern is normal. No suspicious soft tissue calcifications. IMPRESSION: Degenerative change of the right hip without evidence of acute bony abnormality. Dictated by: Kristian Billingsley M.D. on 08/03/2025 at 4:30 Approved by: Kristian Billingsley M.D. on 08/03/2025 at 4:31
== END ==
PROVIDERS: PCP Nurse Practitioner Family; Referring Provider Nurse Practitioner Family; Visit Provider Nurse Practitioner Family
DX: M25.551 Pain in right hip (principal); M25.50 Pain in unspecified joint
CPT/HCPCS: 36415; 73502; 85651; 86038; 86140; 86200; 86430

== ENCOUNTER → 2025-08-08 08:17 | Outpatient (CLI) | payer MEDICARE, OTHER, SELFPAY ==
--- NOTE | 2025-08-08 08:20 | DI.MRI.S_ITS ---
PROCEDURE: MR ABDOME PELVIS WWO CON INDICATIONS: Crohns disaease TECHNIQUE: After the ingestion of oral contrast, coronal and axial HASTE, coronal 2-D FLASH in-and [id number] sequences. After the administration of contrast, coronal and axial VIBE or 2-D FLASH with fat saturation sequences acquired through the abdomen and pelvis. Optional diffusion weighted imaging and ADC may be performed. COMPARISON: [facility], CT, CT ABDOMEN PELVIS W CON, 07/29/2025, 10:01. FINDINGS: Image quality: Excellent. Bowel and peritoneum: Proctectomy and J-pouch formation. There is no bowel wall thickening at this time. No luminal narrowing with upstream dilation. Image quality: Diagnostic. Lung bases: Unremarkable. Liver: No solid mass. Benign punctate T2 hyperintense cysts. Gallbladder: No gallstones or wall thickening. Biliary ducts: No biliary dilation. No evidence of PSC. Pancreas: No ductal dilation. Spleen: Size is within normal limits. Adrenal Glands: No adrenal nodules. Kidneys and Ureters: No hydronephrosis. No solid mass. No complex renal cystic lesion which requires follow up. Peritoneum: No abnormal intraperitoneal fluid. No free air. Ventral Wall: No hernia. Abdominal Nodes: No retroperitoneal or mesenteric adenopathy by size criteria. Vessels: Aorta and inferior vena cava are normal in size. Pelvis: No pelvic mass. Bones: No aggressive osseous abnormality. IMPRESSION: No evidence of active inflammatory bowel disease. Dictated by: Gee Cullen M.D. on 08/10/2025 at 13:40 Approved by: Gee Cullen M.D. on 08/10/2025 at 13:47
== END ==
PROVIDERS: PCP Nurse Practitioner Family; Referring Provider Nurse Practitioner Family; Visit Provider Nurse Practitioner Family
DX: K50.918 Crohn's disease, unspecified, with other complication (principal); R74.01 Elevation of levels of liver transaminase levels; D53.1 Other megaloblastic anemias, not elsewhere classified; E83.10 Disorder of iron metabolism, unspecified; Z79.620 Long term (current) use of immunosuppressive biologic; Z79.01 Long term (current) use of anticoagulants
CPT/HCPCS: 72197; 74183; A9579

== ENCOUNTER → 2025-08-13 11:09 | Outpatient (CLI) | payer MEDICARE, OTHER, SELFPAY ==
--- NOTE | 2025-08-13 11:11 | DI.MRI.S_ITS ---
PROCEDURE: MR ABDOMEN LIVER PROTOCOL INDICATIONS: f/u to ct abdomen TECHNIQUE: Coronal HASTE, axial 2D FLASH in- and [id number]; axial breath-hold T2 FSE. Dynamic axial VIBE during the administration of contrast; post-contrast coronal VIBE or 2D FLASH with fat saturation from the hepatic dome to the iliac crests. Optional diffusion weighted imaging and ADC may be performed. COMPARISON: None. FINDINGS: Image quality: Diagnostic. Lung bases: No pleural or pericardial effusion. Liver: Normal size and signal with a smooth margin. No significant hypointensity to suggest significant hemosiderosis. Several subcentimeter T2 hyperintensities throughout the left hepatic lobe. No suspicious enhancing mass. Gallbladder: Partially decompressed. Dependent T2 hypointense material layering at the fundus. Biliary ducts: No biliary dilatation or irregularity. Pancreas: Normal size and morphology without visible ductal dilatation or inflammation. Spleen: Size is within normal limits. Adrenal Glands: No adrenal nodules. Kidneys and Ureters: No hydronephrosis. No solid mass. No complex renal cystic lesion which requires follow up. Stomach and Bowel: Stomach and visible bowel loops are within normal limits. Peritoneum: No abnormal intraperitoneal fluid. No free air. Ventral Wall: No hernia. Abdominal Nodes: No retroperitoneal or mesenteric adenopathy by size criteria. Vessels: Aorta and inferior vena cava are normal in size. Bones: No aggressive osseous abnormality. Mild dextroscoliosis. IMPRESSION: Normal liver morphology with several benign-appearing T2 hyperintensities. If further iron quantification is needed, random liver biopsy could be performed. Fairly normal signal in the pancreas and visible myocardium. Probable minor cholelithiasis. Dictated by: Virginie Tafoya M.D. on 08/14/2025 at 11:54 Approved by: Virginie Tafoya M.D. on 08/14/2025 at 12:02
== END ==
LOC: MRI 11:11
PROVIDERS: PCP Nurse Practitioner Family; Referring Provider Nurse Practitioner Family; Visit Provider Nurse Practitioner Family
DX: K50.918 Crohn's disease, unspecified, with other complication (principal); R74.01 Elevation of levels of liver transaminase levels; D53.1 Other megaloblastic anemias, not elsewhere classified; Z79.01 Long term (current) use of anticoagulants; E83.10 Disorder of iron metabolism, unspecified; Z79.620 Long term (current) use of immunosuppressive biologic
CPT/HCPCS: 74183; A9579